=== PATIENT | female | born 1960 | race Caucasian/White ===

== ENCOUNTER → 2019-12-05 09:34 | Outpatient (CLI) | payer OTHER, SELFPAY ==
--- NOTE | 2019-12-05 | DI.MRI.S_ITS ---
PROCEDURE: MR SHOULDER RT WO CON INDICATIONS: pain in right shoulder TECHNIQUE: Noncontrast oblique coronal T2 fast spin echo with fat saturation, oblique sagittal T1 spin echo and T2 fast spin echo with fat saturation, axial T1 spin echo and T2 fast spin echo with fat saturation through the shoulder. COMPARISON: None. FINDINGS: Image quality: Diagnostic. Rotator cuff: No full-thickness or high-grade partial-thickness tear of the rotator cuff is identified. There is mild increased signal involving the bursal surface of the distal supraspinatus tendon, which may represent a low-grade partial-thickness tearing. No significant change is appreciated, however. The subscapularis, infraspinatus, and teres minor tendons are intact. There is no significant atrophy of the rotator cuff muscles. Bones and bursae: No acute fracture, dislocation, or suspicious osseous lesion is identified involving the osseous structures of the shoulder. No significant degenerative changes of the glenohumeral joint are present. There is a moderate size glenohumeral joint effusion. A small amount of fluid is seen extending beyond the inferior joint capsule into the axillary soft tissues. Frhr-na-qsqyqoyh degenerative changes of the acromio clavicular joint are present. There is a small amount of fluid contained within the subacromial subdeltoid bursa. Capsule and soft tissues: Evaluation of the labrum and glenohumeral ligaments is suboptimal without intra-articular contrast. There is blunting of the posterior labrum and increased signal at the labral cartilaginous junction along the superior labrum, which probably is related to previous labral injury. The blunting of the labrum extends along the entire length of the posterior labrum. Edema about the inferior glenohumeral ligament is present with corresponding prominent thickening. A small perforating tear is suspected given the fluid extending beyond inferior joint capsule. There is also edema overlying the superior joint capsule within the region of the rotator interval. The long head of the biceps tendon is normally positioned within the bicipital groove. There is mild intrasubstance increased signal identified at the biceps anchor. IMPRESSION: 1. Mild bursal surface fraying versus tendinopathy of the supraspinatus tendon. No full-thickness tear of the rotator cuff. 2. Edema and thickening of the inferior glenohumeral ligament is suspicious for he's had capsulitis versus a prominent ligamentous sprain. Please correct clinically. 3. Blunting of the posterior labrum is suggestive of previous labral injury. 4. Mild focal tendinopathy versus intrasubstance partial-thickness tearing involving the biceps anchor. 5. Widn-rz-jznyfcuw degenerative changes of the acromio clavicular joint. 6. Small glenohumeral joint effusion. Dictated by: Eliazar Montes De Oca M.D. on 12/05/2019 at 14:53 Approved by: Eliazar Montes De Oca M.D. on 12/05/2019 at 14:56
== END ==
PROVIDERS: PCP Family Medicine; Visit Provider Family Medicine
DX: M25.511 Pain in right shoulder (principal); M19.011 Primary osteoarthritis, right shoulder; M25.411 Effusion, right shoulder
CPT/HCPCS: 73221

== ENCOUNTER → 2020-07-29 10:00 | Outpatient (CLI) | payer OTHER, SELFPAY ==
--- NOTE | 2020-07-29 | DI.MG.S_ITS ---
BILATERAL DIGITAL SCREENING MAMMOGRAM 3D/2D WITH CAD: 07/29/2020 CLINICAL: Routine screening. Comparison is made to exams dated: 01/24/2019 mammogram, 01/09/2018 mammogram, and 01/04/2017 mammogram - [facility]. There are scattered fibroglandular elements in both breasts. Current study was also evaluated with a Computer Aided Detection (CAD) system. No significant masses, calcifications, or other findings are seen in either breast. There has been no significant interval change. IMPRESSION: NEGATIVE There is no mammographic evidence of malignancy. A 1 year screening mammogram is recommended. This exam was interpreted at Station ID: [id number]. NOTE: For mammograms, a report in lay terms will be sent to the patient. Approximately 15% of breast malignancies will not be visualized mammographically. In the management of a palpable breast mass, a negative mammogram must not discourage biopsy of a clinically suspicious lesion. Electronically Signed By: Vishnu wheat/carrol:07/29/2020 10:32:47 letter sent: Normal Exam ACR BI-RADS Category 1: Negative 3341F
== END ==
PROVIDERS: PCP Family Medicine; Referring Provider Family Medicine; Visit Provider Family Medicine
DX: Z12.31 Encounter for screening mammogram for malignant neoplasm of breast (principal)
CPT/HCPCS: 77063; 77067

== ENCOUNTER → 2021-07-26 12:26 | Outpatient (CLI) | payer OTHER, SELFPAY ==
[2021-07-26 14:53] LABS: COVID19 -Nasal RAPID Negative (Negative)
== END ==
PROVIDERS: PCP Family Medicine; Visit Provider Surgery
DX: Z20.822 Contact with and (suspected) exposure to COVID-19 (principal)
CPT/HCPCS: 87635; C9803

== ENCOUNTER 2021-07-27 08:40 | Inpatient (IN) | payer OTHER, SELFPAY ==
[2021-07-23 12:55] VITALS: BMI 34.9
[2021-07-27] VITALS (18 sets, daily range): BP systolic 127–145; BP diastolic 64–85; PULSE 88–101; RESP 11–19; TEMP 35.6–36.6; O2SAT 2–100; BMI 34.9
--- NOTE | 2021-07-27 | PATH_ITS ---
[facility] Accession Number: [id number] . 01 Material submitted: . gallbladder - GALLBLADDER . 01 Diagnosis: Gallbladder, Cholecystectomy: Chronic cholecystitis and cholelithiasis. Negative for dysplasia, neoplasia, and malignancy. [facility] 07/30/2021 1543 Local . 01 Electronically signed: . Liz Lockhart MD, Pathologist NPI- [id number] . 01 Gross description: . The specimen is received in formalin, labeled gallbladder and consists of a 7.2 x 2.8 x 2.4 cm previously disrupted gallbladder with a 1.0 cm in diameter cystic duct. The serosa is garcia-purple and wrinkled with fibrinous adhesions. Opening reveals green viscous bile with two rubi-green multifaceted choleliths measuring 2.0 cm each. The mucosa is rubi and velvety to trabeculated, and the wall thickness measures 0.1 cm. Child Development Teacher sections are submitted, to include the en face cystic duct margin (blue), in cassette A1. ([id number]) /MRV 07/28/2021 1000 Local . 01 Pathologist provided ICD-10: K81.1, K80.50 . 01 CPT . 450376 Performed at: 01 [facility] [address] [place] [address] [address], [place], [place] [id number] MD Ruben Bernal MD Phone: [phone]
[2021-07-27] MEDS: ACETAMINOPHEN 325 MG TABLET 975 MG PO (09:41)
[2021-07-27] MEDS: GABAPENTIN 300 MG CAPSULE PO (09:42)
[2021-07-27] MEDS: SCOPOLAMINE 1 PATCH TOP (09:43)
[2021-07-27] MEDS: LACTATED RINGERS 1,000 ML 100 ML IV ×3 (09:43→14:38)
--- NOTE | 2021-07-27 10:56 | PM.HP.1 ---
History of Present Illness History of Present Illness Date Patient Seen: 07/27/21 Time Patient Seen: 10:56 Chief complaint: [place] Narrative: Светлана is a 60 year-old female who is here for an elective cholecystectomy secondary to biliary colic. Please see the H& P from June 2021 for further detail. No interval changes in health. Patient History Medical History GERD (gastroesophageal reflux disease) History of ectopic Obesity Paraganglioma Surgical History History of laparotomy Hx of tonsillectomy Family & Social History Family History Sister Cancer Father Cancer Mother Gallstone Social History: household members spouse Tobacco & Substance use: Smoking Status Never smoker alcohol intake never Substance Use Type does not use Meds Home Medications and Allergies Home Medications Medication Instructions Recorded Confirmed Type aspirin 81 mg tablet,delayed 81 mg PO DAILY 11/11/19 07/27/21 History release calcium carbonate 500 mg calcium 500 mg PO DAILY 11/11/19 07/27/21 History (1,250 mg) tablet (Calcium 500) lactobacillus combo no.11 15 1 cap PO DAILY 11/11/19 07/27/21 History billion cell sprinkle capsule (Probiotic) multivitamin (Multiple Vitamins) 1 tab PO DAILY 11/11/19 07/27/21 History omega-3 fatty acids-fish oil 360 1 cap PO DAILY 11/11/19 07/27/21 History mg-1,200 mg capsule (Fish Oil) omeprazole 20 mg capsule,delayed 40 mg PO DAILY 11/11/19 07/27/21 History release Allergies Allergy/AdvReac Type Severity Reaction Status Date / Time No Known Drug Allergies Allergy Verified 07/27/21 09:32 Review of Systems Review of Systems ROS: Yes All systems reviewed with the patient and are negative except as otherwise documented Exam Vital Signs (past 8 hours): - 07/27/21 09:34 Temperature 97.1 F L Pulse Rate 88 Respiratory Rate 16 Blood Pressure 130/85 Pulse Oximetry 100 Oxygen Delivery Method Room Air Narrative Exam Narrative: Constitutional-She is oriented to person, place and time. No apparent distress Cardiovascular- regular rate, no peripheral edema Pulmonary-unlabored respiratory effort, no audible wheezing Abdominal-soft, non-tender, non-distended Musculoskeletal-no cyanosis or clubbing Neurological-nonfocal, normal strength throughout, Skin-warm and dry Assessment & Plan Assessment and plan (1) Biliary colic: Status: Acute Assessment & Plan narrative: 60-year-old female with biliary colic here for elective cholecystectomy today. We again discussed the technical nature of the operation and the operative risks including bleeding, infection, damage to surrounding structures, bile leak, conversion to open. Her questions have been answered and she is in agreement with this plan. Time Spent With Patient Critical Care time: I spent a total of [] minutes of critical care time on this patient's care today; this time is exclusive of procedural time.
[2021-07-27] MEDS: CEFAZOLIN 1 GM VIAL 2 GM IV (11:30)
--- NOTE | 2021-07-27 11:40 | SUR.OPER ---
Supine on padded OR bed, head on pillow, safety belt at thigh, left arm padded and tucked at side. Right arm secured on padded arm board <90 degrees abduction. Legs uncrossed. Padded footboard in place, gel pad under bilateral heels. Tape over blanket to secure lower legs.
[2021-07-27] MEDS: BUPIVACAINE 0.25% (PF) VIAL 30 ML INJ (12:05)
[2021-07-27] MEDS: BUPIVACAINE LIPOSOME 266 MG/20 ML VIAL INJ (12:34)
--- NOTE | 2021-07-27 13:30 | P.OP_ITS ---
Operative Date/Time/Diagnoses Date of procedure: 07/27/21 Time of procedure: 13:30 Pre-op diagnosis: Biliary colic Post-op diagnosis: same Procedure & Clinicians Procedure: Laparoscopic converted to open cholecystectomy Same procedure as scheduled: Yes Indications: 60-year-old female with cholelithiasis and biliary colic here for elective cholecystectomy. She has a history of an exploratory laparotomy and aortic cyst excision. Surgeon: Sanjeev Carl Click Yes if Unassisted: Yes Anesthesia Type: General Operative Notes Findings: Extremely dense intra-abdominal adhesions. Specimen(s): other (Gallbladder) Estimated Blood Loss (mL): 20 Procedure in detail: Patient was brought to the operating room placed supine on the table. Bilateral lower extremity compression devices were applied. She received 2 g of Ancef. General anesthesia was induced she was intubated with an endotracheal tube. She was prepped and draped sterile fashion. Time-out was performed. The infraumbilical incision was made that the fascia was elevated and sharply incised. The abdomen was entered atraumatically. Pneumoperitoneum was established. The laparoscoped was introduced into the abdomen and there were extremely dense intra-abdominal adhesions. A secondary port 5 mm was placed in the left upper quadrant and placed under direct visualization with Optiview technique. The remainder of the abdomen that could be observed was again extremely dense adhesions involving numerous loops of bowel prohibitive from accessing the right upper quadrant and therefore the procedure was converted to an open cholecystectomy. A subcostal incision was made in the right upper quadrant. The skin soft tissue was divided with electric cautery. The anterior sheath was incised the muscle was divided in the posterior sheath was incised as well. The abdomen was entered and a self retaining retractor was placed. The gallbladder was then identified was containing large stones which were milked from the neck into the dome of the gallbladder. The fundus of the gallbladder was then grasped and it was dissected off of the liver bed in a top- down fashion. At the infundibulum of the gallbladder a PDS loop was placed. Then I carefully dissected out the cystic duct and the cystic artery which were ligated individually with Weck hemolytic clips. Once proximal twice on the stay side. The cystic duct and artery were then divided sharply. Gallbladder was removed. The gallbladder fossa was irrigated hemostasis was checked. The fascia was then closed in layers using 1. PDS suture in running fashion. The subcutaneous tissue was reapproximated using Vicryl suture followed by Monocryl application of Dermabond and Steri-Strips. The infraumbilical incision fascia was closed with [id number] PDS suture and the infraumbilical and left upper quadrant port skin was closed with Monocryl followed by Dermabond. Patient tolerated the operation well was transferred to recovery room in stable condition. Complications: none Post-operative Condition: stable Disposition: Acute Care
[2021-07-27] MEDS: fentaNYL 100 MCG/2 ML INJ IV ×2 (13:33→13:46)
--- NOTE | 2021-07-27 13:37 | SUR.PHASEI ---
Pt arrived with oral airway, nasal cannula added, airway out 02 being weaned. c/o pain, medicated with fentanyl.
--- NOTE | 2021-07-27 13:42 | SUR.PHASEI ---
Short run of svt 130's, self limiting. Dr. Carl spoke with pt at bedside, report back to Darlene.
--- NOTE | 2021-07-27 14:41 | SUR.PHASEI ---
Patient transfered to room 218 in bed with this Rn with belongings. Bed in low position. Call light in reach.
[2021-07-27] MEDS: KETOROLAC 30 MG/ML VIAL IV ×2 (16:03→22:11)
[2021-07-27] MEDS: HYDROMORPHONE 1 MG INJ IV (17:10)
[2021-07-27] MEDS: ACETAMINOPHEN 325 MG TABLET 650 MG PO (17:43)
[2021-07-27] MEDS: MAG HYDROX/ALUM/SIMETH 30 ML UDC PO (17:50)
[2021-07-27] MEDS: OXYCODONE IR 5 MG TABLET PO (20:19)
[2021-07-27] MEDS: ONDANSETRON 4 MG/2 ML INJ IV (22:06)
--- NOTE | 2021-07-27 22:56 | PC.NURSE ---
Pt hasn't voided yet, she has been to the bedside commode 3 time already. Bladder scan done with 155, Pt had an emesis of 100 ml clear. Pt has only had water and apple sauce tonight. will continue to monitor.
[2021-07-28] VITALS (13 sets, daily range): BP systolic 101–139; BP diastolic 67–77; PULSE 74–91; RESP 16–18; TEMP 35.7–36.5; O2SAT 94–98
[2021-07-28] MEDS: ACETAMINOPHEN 325 MG TABLET 650 MG PO ×4 (00:45→16:59)
[2021-07-28] MEDS: HYDROMORPHONE 1 MG INJ IV ×2 (00:45→08:37)
[2021-07-28] MEDS: LACTATED RINGERS 1,000 ML 100 ML IV (00:45)
[2021-07-28] MEDS: SODIUM CHLORIDE 0.9% FLUSH 10 ML IV ×2 (00:46→22:59)
[2021-07-28] MEDS: OXYCODONE IR 5 MG TABLET PO ×3 (04:09→16:59)
[2021-07-28 06:29] LABS: Add Manual Diff / Slide Review NO; Basophils Absolute Auto 100 /uL (0-100); Basophils Percent Auto 0.4 % (0-2); Eosinophils Absolute Auto 0 /uL (0-450); Hematocrit 37.5 % (36-46); Hemoglobin 12.4 g/dL (12.0-16.0); Lymphocytes Absolute Auto 1100 /uL (1100-4500); Lymphocytes Percent Auto 5.4 % (25-40); Mean Corpuscular HGB Conc 33.1 % (30-36); Mean Corpuscular Hemoglobin 28.7 PG (26-34); Mean Corpuscular Volume 86.7 fL (80-100); Monocytes Absolute Auto 1100 /uL (0-900); Monocytes Percent Auto 5.7 % (3-14); Neutrophils Absolute Auto 17200 /uL (1500-7000); Neutrophils Percent Auto 88.5 % (50-75); Platelet Count 353 X10^3/uL (150-400); Red Blood Cell Count 4.33 X10^6/uL (4.0-5.2); Red Cell Distribution Width 13.6 % (11.6-14.8); White Blood Cell Count 19.4 X10^3/uL (4.5-11.0)
[2021-07-28] MEDS: PANTOPRAZOLE DR 40 MG TABLET PO (06:36)
[2021-07-28 06:37] LABS: Alanine Aminotransferase 70 IU/L (<35); Albumin 4.1 g/dL (3.5-5.0); Albumin Globulin Ratio 1.2 (1.0-2.8); Alkaline Phosphatase 109 U/L (38-126); Aspartate Aminotransferase 85 IU/L (14-36); BUN Creatinine Ratio 22.1 (6-22); Bilirubin Total 0.7 mg/dL (0.2-1.3); Blood Urea Nitrogen 19 mg/dL (7-17); Calcium 9.2 mg/dL (8.4-10.2); Carbon Dioxide 29 mmol/L (22-32); Chloride 102 mmol/L (98-107); Estimated Glomerular Filt Rate > 60.0 mL/min (>60); Globulin 3.3 g/dL (1.7-4.1); Glucose 136 mg/dL (80-110); HEMOLYSIS < 15 (0-50); Potassium 4.2 mmol/L (3.4-5.1); Sodium 137 mmol/L (137-145); Total Protein 7.4 g/dL (6.3-8.2)
[2021-07-28] MEDS: KETOROLAC 30 MG/ML VIAL IV ×3 (06:37→20:37)
[2021-07-28] MEDS: ONDANSETRON 4 MG/2 ML INJ IV (08:37)
[2021-07-28] MEDS: ENOXAPARIN 40 MG/0.4 ML SYRINGE SUBCUT (09:45)
--- NOTE | 2021-07-28 10:21 | PM.PNPO.1 ---
Subjective Subjective Date Patient Seen: 07/28/21 Time Patient Seen: 10:21 Interval history: Incision pain RUQ. No nausea tolerating clears. Arias placed for retention. Exam Vital Signs (past 8 hours): - 07/28/21 06:01 07/28/21 07:50 Temperature 97.7 F 96.3 F L Pulse Rate 84 85 Respiratory Rate 16 16 Blood Pressure 139/70 134/77 Oxygen Delivery Method Room Air Oxygen Flow Rate 0 Narrative Exam Narrative: gen-Adult female alert oriented no acute distress abdomen-soft, appropriately tender to palpation. Incision RUQ CDI. Objective Labs Result Diagrams: 07/28/21 06:14 07/28/21 06:14 Labs: Laboratory Results - last 24 hr 07/28/21 07/28/21 06:14 06:14 WBC 19.4 H RBC 4.33 Hgb 12.4 Hct 37.5 MCV 86.7 MCH 28.7 MCHC 33.1 RDW 13.6 Plt Count 353 Neut % (Auto) 88.5 H Lymph % (Auto) 5.4 L P[place] % (Auto) 5.7 Eos % (Auto) 0.0 L Baso % (Auto) 0.4 Neut # (Auto) 96315 H Lymph # (Auto) 1100 Pinal # (Auto) 1100 H Eos # (Auto) 0 Baso # (Auto) 100 Sodium 137 Potassium 4.2 Chloride 102 Carbon Dioxide 29 BUN 19 H Creatinine 0.86 Estimated GFR > 60.0 BUN/Creatinine Ratio 22.1 H Glucose 136 H Calcium 9.2 Total Bilirubin 0.7 AST 85 H ALT 70 H Alkaline Phosphatase 109 Total Protein 7.4 Albumin 4.1 Globulin 3.3 Albumin/Globulin Ratio 1.2 PFSH Medical History GERD (gastroesophageal reflux disease) History of ectopic Obesity Paraganglioma Surgical History History of laparotomy Hx of tonsillectomy Family History Sister Cancer Father Cancer Mother Gallstone Social History marital status: household members: spouse Smoking Status: Never smoker alcohol intake: never Assessment & Plan Post-op Postoperative Procedures: Procedures Operation Date: 07/27/21 09:45 Actual Procedure Side Surgeon p Laparoscopic Cholecystectomy- converted to open cholecystectomy Sanjeev Carl MD Postoperative plan narrative: POD 1 sp lap to open cholecystectomy for biliary colic. Open for extensive intra abdominal adhesions. Doing reasonably well for POD1. -Diet as tolerated -OOB -Physical therapy consult -Arias for urinary rention -Likely discharge tomorrow if leukocytosis down trends and pain adequately controlled. -SCDs and pLovenox
[2021-07-28] MEDS: LACTATED RINGERS 1,000 ML 120 ML IV (13:26)
--- NOTE | 2021-07-28 14:22 | PT.IIE ---
Current Diagnoses Calculus of bile duct without cholangitis or cholecystitis without obstruction (07/27/21) Surgery Performed Operation Date: 07/27/21 09:45 Actual Procedures p Laparoscopic Cholecystectomy- converted to open cholecystectomy - Sanjeev Carl MD Medical History (Last Reviewed 07/27/21 @ 10:57 by Sanjeev Carl MD) GERD (gastroesophageal reflux disease) History of ectopic Obesity Paraganglioma Physical Therapy Inpatient Evaluation/Re-Eval M1 PT/OT-IP Prior Functional Status Start: 07/28/21 16:07 Freq: NEEDED Status: Active Protocol: Document 07/28/21 14:22 AB (Rec: 07/28/21 16:17 AB [id number]) Medical Review Prior Functional Status Medical History Reviewed Yes Communication able to make needs known Mobility and Gait pt stated that she is independent with all mobilities and ambulation without AD Social History Household Members spouse Living Arrangements House Number of Floors (Floors) One Floor Number of Stairs To Enter/Railing? 3 steps to enter without rails Home Environment High Toilet,Tub/Shower Home Equipment Straight Cane Employment Status Retired M2 PT-IP Current Condition Start: 07/28/21 16:07 Freq: NEEDED Status: Active Protocol: Document 07/28/21 14:22 AB (Rec: 07/28/21 16:17 AB [email or web address]) Physical Therapy Current Condition Current Condition Evaluation Date 07/28/21 Treatment Diagnosis s/p lap bin; difficulty in walking Onset Date 07/27/21 Precautions Abdominal Surgery Precautions Log Roll,Lifting Restrictions, Gait Belt above Incisional Area M3 PT-IP Subjective Start: 07/28/21 16:07 Freq: NEEDED Status: Active Protocol: Document 07/28/21 14:22 AB (Rec: 07/28/21 16:17 AB [email or web address]) Subjective Physical Therapy Visit Type Type Initial Evaluation Visit Start Time 14:22 Visit Stop Time 14:45 Total Visit Minutes 23 Number of BUSINESS OBJECTS CONSULTANT Visits 0 Physical Therapy Visit Comments Patient Comments agreeable to do PT Therapy Pain Assessment Pain When Pain Assessed At Rest Pain Present Pain Present Pain Reported Location abdomen Intensity 8 Scale Used Numeric (0 - 10) Pain Management Techniques Distraction,Modification of Treatment,Re-positioning, Timing of Activity with Medications M4 PT-IP Mobility and Gait Start: 07/28/21 16:07 Freq: NEEDED Status: Active Protocol: Document 07/28/21 14:22 AB (Rec: 07/28/21 16:17 AB [email or web address]) PT-Bed Mobility Assessment Rolling Type of Rolling Log Rolling Level of Assist Minimal Assistance Sit to Supine Sit to Supine Minimal Assistance,1 Person Assistance,Bedrails PT-Transfer Assessment Sit to and From Stand Sit to and from Stand Minimal Assistance Equipment Transfer Assistive Device Gait Belt,Front Wheeled Walker Orthotic/Prosthetic Devices or Brace: No Comments Mobility Comments pt sitting on EOB and agreed to do PT. educated pt on abdominal precautions and log roll bed mobility. pt with c/ o nausea. BP: 121/73. completed sit to stand min A and cues and ambulated using FWW ~ 8ft min A and cues. c/o increase pain and requested to go back to bed. completed log roll sit to supine min A and cues. positioned in bed. call light and table placed wtihin reach. Gait Assessment Gait Gait Assistance Required: Minimum Assistance Distance (Feet) 8 Able to Maintain Weight Bearing Status Yes During Gait Assistive Devices Assistive Device Gait Belt,Front Wheeled Walker Orthotic/Prosthetic Devices or Brace: No Gait Deviations General Gait Pattern Decreased Stride Length, Decreased Feet Clearance Factors Limiting Gait Function Factors Limiting Gait Function Decreased Activity Tolerance, Decreased Strength,Limited Range of Motion,Pain,Poor Balance,Poor Safety Awareness PT-Balance Assessment Sitting Balance and Reactions Static Sitting Balance Ability Good Dynamic Sitting Balance Ability Good Standing Balance and Reactions Static Standing Balance Ability Fair Dynamic Standing Balance Ability Fair Device Used FWW M5 PT-IP Objective Assessments Start: 07/28/21 16:07 Freq: NEEDED Status: Active Protocol: Document 07/28/21 14:22 AB (Rec: 07/28/21 16:17 [email or web address]) Orientation Orientation/Cognition Level of Alertness Alert Orientation Name,Place,Situation Language Function Ability No Deficits Noted Safety Awareness Decreased Safety Awareness Memory Description No Deficits Noted Gross Range of Motion Lower Extremity ROM Assessment Within Functional Limits Strength Lower Extremity Strength Assessment Left Impaired Hip 3+/5 Knee 4-/5 Coordination Assessment Gross Coordination Gross Coordination WNL Sensation Assessment Sensation Gross Sensation WNL Muscle Tone Muscle Tone WNL Yes M6 PT-IP Treatment Start: 07/28/21 16:07 Freq: NEEDED Status: Active Protocol: Document 07/28/21 14:22 AB (Rec: 07/28/21 16:17 [email or web address]) Physical Therapy Treatment Education Education Provided Precautions,Safety M7 PT-IP Assessment and Plan Start: 07/28/21 16:07 Freq: NEEDED Status: Active Protocol: Document 07/28/21 14:22 AB (Rec: 07/28/21 16:17 AB [email or web address]) PT Summary Assessment and Plan Potential Rehabilitation Potential Good Status of Condition at Evaluation Evolving Summary Impairments Pain,ROM,Strength,Balance, Coordination,Sensation,Tone, Cognition,Bed Mobility, Transfers,Gait,Activity Tolerance Assessment Summary pt requiring min A with mobility using FWW and presents with decrease activity tolerance with c/o increase pain and nausea with activity affecting mobility independence. pt plans to go home with spouse to assist her . informed spouse that pt will need FWW at this time and spouse stated that he can borrow. one. will conduct caregiver training when appropriate as well as stair climbing training. will continue to assess pt's mobility progress. Goals Bed Mobility Goal Independent Transfer Goal Independent,Front Wheeled Walker Gait Goal Independent,Front Wheel Walker Gait Distance 200 Other Goals improve transfers and ambulation without AD 200 ft SBA up/down 3 steps without rails SBA Days to Meet Goals 10 Frequency of Treatment Frequency Of Treatment Once a Day Treatment Plan Physical Therapy Treatment Plan Bed Mobility Training,Transfer Training,Gait Training, Therapeutic Exercise,Balance Retraining,Post Op Education, Discharge Planning,Hot or Cold Pack,Neuromuscular Re-ed, Coordination Retraining,Manual Therapy Other Recommendations and Next Treatment ambulation Focus Precautions Abdominal Surgery Precautions Log Roll,Lifting Restrictions, Gait Belt above Incisional Area Recommendations To Nursing Amount of Assist Needed 1 Person Assist Discharge Recommendations PT Discharge Recommendations Home with Assistance Equipment Needed for Home Before FWW Discharge Transportation Needs at Discharge Private Vehicle
[2021-07-29] VITALS (10 sets, daily range): BP systolic 110–133; BP diastolic 66–77; PULSE 76–105; RESP 16–17; TEMP 36.2–37.2; O2SAT 94–97
[2021-07-29] MEDS: KETOROLAC 30 MG/ML VIAL IV ×2 (03:47→21:15)
[2021-07-29] MEDS: SODIUM CHLORIDE 0.9% FLUSH 10 ML IV ×3 (03:47→19:59)
[2021-07-29 05:21] LABS: Add Manual Diff / Slide Review NO; Basophils Absolute Auto 0 /uL (0-100); Basophils Percent Auto 0.3 % (0-2); Eosinophils Absolute Auto 100 /uL (0-450); Hematocrit 33.7 % (36-46); Lymphocytes Absolute Auto 1300 /uL (1100-4500); Lymphocytes Percent Auto 10.7 % (25-40); Mean Corpuscular HGB Conc 32.8 % (30-36); Mean Corpuscular Hemoglobin 28.5 PG (26-34); Mean Corpuscular Volume 86.9 fL (80-100); Monocytes Absolute Auto 900 /uL (0-900); Monocytes Percent Auto 7.7 % (3-14); Neutrophils Absolute Auto 9900 /uL (1500-7000); Neutrophils Percent Auto 80.3 % (50-75); Platelet Count 292 X10^3/uL (150-400); Red Blood Cell Count 3.88 X10^6/uL (4.0-5.2); Red Cell Distribution Width 13.7 % (11.6-14.8); White Blood Cell Count 12.4 X10^3/uL (4.5-11.0)
[2021-07-29 05:33] LABS: Alanine Aminotransferase 103 IU/L (<35); Albumin 3.6 g/dL (3.5-5.0); Albumin Globulin Ratio 1.2 (1.0-2.8); Alkaline Phosphatase 105 U/L (38-126); Aspartate Aminotransferase 115 IU/L (14-36); BUN Creatinine Ratio 20.5 (6-22); Bilirubin Total 1.5 mg/dL (0.2-1.3); Blood Urea Nitrogen 18 mg/dL (7-17); Calcium 8.7 mg/dL (8.4-10.2); Carbon Dioxide 30 mmol/L (22-32); Chloride 106 mmol/L (98-107); Estimated Glomerular Filt Rate > 60.0 mL/min (>60); Globulin 3.1 g/dL (1.7-4.1); Glucose 111 mg/dL (80-110); HEMOLYSIS < 15 (0-50); Potassium 4.1 mmol/L (3.4-5.1); Sodium 138 mmol/L (137-145); Total Protein 6.7 g/dL (6.3-8.2)
[2021-07-29] MEDS: OXYCODONE IR 5 MG TABLET PO ×4 (05:35→20:00)
[2021-07-29] MEDS: ACETAMINOPHEN 325 MG TABLET 650 MG PO ×4 (05:36→17:23)
[2021-07-29] MEDS: PANTOPRAZOLE DR 40 MG TABLET PO (05:37)
[2021-07-29] MEDS: ENOXAPARIN 40 MG/0.4 ML SYRINGE SUBCUT (09:35)
--- NOTE | 2021-07-29 10:47 | PT.IPTN ---
Current Diagnoses Calculus of bile duct without cholangitis or cholecystitis without obstruction (07/27/21) Surgery Performed Operation Date: 07/27/21 09:45 Actual Procedures p Laparoscopic Cholecystectomy- converted to open cholecystectomy - Sanjeev Carl MD Physical Therapy Treatment Note M2 PT-IP Current Condition Start: 07/28/21 16:07 Freq: NEEDED Status: Active Protocol: Document 07/28/21 14:22 AB (Rec: 07/28/21 16:17 AB [id number]) Physical Therapy Current Condition Current Condition Evaluation Date 07/28/21 Treatment Diagnosis s/p lap bin; difficulty in walking Onset Date 07/27/21 Precautions Abdominal Surgery Precautions Log Roll,Lifting Restrictions, Gait Belt above Incisional Area M3 PT-IP Subjective Start: 07/28/21 16:07 Freq: NEEDED Status: Active Protocol: Document 07/29/21 10:10 SP (Rec: 07/29/21 13:26 SP [id number]) Subjective Physical Therapy Visit Type Type Treatment Note Visit Start Time 10:09 Visit Stop Time 10:47 Total Visit Minutes 38 Notes AIRWAYS CONTROL SPECIALIST coordinated with pt earlier in am for later am for CGT at 10 am. in room when arrived. He completed caregiver training including assist fasten abdominal binder, donning gait belt and physical assist throughout tx required . Vitals taken during tx: seated in chair at rest: 119/ 75 HR 75-105, SaO2 94% on on RA. standing 106/ 54 HR 121 supine post mobility: 111/64 HR 90 SaO2 98% on RA. Pt reported feeling lightheaded but willing to assess gait and stairs, lightheadedness did not worsen during mobility. Number of AIRWAYS CONTROL SPECIALIST Visits 1 Physical Therapy Visit Comments Patient Comments agreeable to do PT Patient Goals return home with assist. M4 PT-IP Mobility and Gait Start: 07/28/21 16:07 Freq: NEEDED Status: Active Protocol: Document 07/29/21 10:10 SP (Rec: 07/29/21 13:26 SP [id number]) PT-Bed Mobility Assessment Rolling Type of Rolling Log Rolling Level of Assist Standby Assistance Sit to Supine Sit to Supine Minimal Assistance,1 Person Assistance PT-Transfer Assessment Sit to and From Stand Sit to and from Stand Contact Guard Assistance,1 Person Assistance,Use of Upper Extremities Equipment Transfer Assistive Device Gait Belt,Front Wheeled Walker Orthotic/Prosthetic Devices or Brace: No Transfers Transfer Destination Bed,Wheelchair Transfer Technique pt ambulated using FWW Transfer Ability Level of Assist Contact Guard Assistance,1 Person Assistance,Use of Upper Extremities Comments Mobility Comments Pt was seated in chair when arrived. Reviewed abdominal precautions. assisted pt with fastening abdominal binder and donning gait belt for safety to assist during mobility. Sit>stand CGA with cues for, progressed gait into hallway to w/c approx 15 ft using FWW with min-mod UE WB on FWW, steady on feet. Pt stand>sit CGA into w/c. Pt wheeled down to stairs, completed stair mgt and requested be pushed back to room due to really tired and still lightheaded. Wheeled pt back to room. Sit<>stand, SPT to R side of bed CGA using FWW . Seated at EOB>supine Min A for LEs into bed. Pt used pillow hold at abdomen during bed mobility, able to bridge scoot to center self in bed. Pt elevated head and LEs per request. Pt stated will probable sleep in recliner at home until feel little better knowing pain having. stated acquired FWW for pt to use at home. Pt had call light and all needs in reach with in room before left. Gait Assessment Gait Gait Assistance Required: Contact Guard Assist Distance (Feet) 15 Able to Maintain Weight Bearing Status Yes During Gait Assistive Devices Assistive Device Gait Belt,Front Wheeled Walker Orthotic/Prosthetic Devices or Brace: No Gait Deviations General Gait Pattern Decreased Stride Length, Decreased Feet Clearance Factors Limiting Gait Function Factors Limiting Gait Function Decreased Activity Tolerance, Decreased Strength,Limited Range of Motion,Pain Comments Gait Comments See mobility comments. Stair Climbing Assessment Evaluation Level of Assist On Stairs Minimal Assistance,1 Person Assistance Devices Stair Climbing Assistive Devices Straight Cane Technique/Endurance Stair Climbing Direction Ascend and Descend Stair Climbing Technique Step to Step Number of Steps Climbed 3 Stair Climbing Set # Repetitions (reps) 1 Comments Stair Climbing Comments Pt completed step to patterning ascend/descend using SPC in RUE and HAND SHOES SEWER with LUE via Min A, no deviations or LOB. Pt states had walking stick will use as 2nd device for stair mgt. PT-Balance Assessment Sitting Balance and Reactions Static Sitting Balance Ability Normal Dynamic Sitting Balance Ability Good Standing Balance and Reactions Static Standing Balance Ability Good Dynamic Standing Balance Ability Fair Device Used FWW M5 PT-IP Objective Assessments Start: 07/28/21 16:07 Freq: NEEDED Status: Active Protocol: Document 07/28/21 14:22 AB (Rec: 07/28/21 16:17 AB [id number]) Orientation Orientation/Cognition Level of Alertness Alert Orientation Name,Place,Situation Language Function Ability No Deficits Noted Safety Awareness Decreased Safety Awareness Memory Description No Deficits Noted Gross Range of Motion Lower Extremity ROM Assessment Within Functional Limits Strength Lower Extremity Strength Assessment Left Impaired Hip 3+/5 Knee 4-/5 Coordination Assessment Gross Coordination Gross Coordination WNL Sensation Assessment Sensation Gross Sensation WNL Muscle Tone Muscle Tone WNL Yes M6 PT-IP Treatment Start: 07/28/21 16:07 Freq: NEEDED Status: Active Protocol: Document 07/29/21 10:10 SP (Rec: 07/29/21 13:26 SP [id number]) Physical Therapy Treatment Education Education Provided Precautions,Safety Other Treatments Other Treatment Performed Cued awareness of use of pillow anterior abdomen and TA facilitation for support during bed mobility. M7 PT-IP Assessment and Plan Start: 07/28/21 16:07 Freq: NEEDED Status: Active Protocol: Document 07/29/21 10:10 SP (Rec: 07/29/21 13:26 SP [id number]) PT Summary Assessment and Plan Potential Rehabilitation Potential Good Status of Condition at Evaluation Evolving Summary Impairments Pain,ROM,Strength,Balance, Coordination,Sensation,Tone, Cognition,Bed Mobility, Transfers,Gait,Activity Tolerance Progress Towards Goals Progressing Toward Goals,Slow Progress due to Pain,Slow Progress due to Activity Tolerance Assessment Summary Pt required Min A for LEs help into bed sit>supine, transfers and gait CGA using fWW for safety due to lightheadedness did not worsen , stable vitals. Min A x1 for stair mgt able to help her. Pt is ok to return home with her to assist her when medically cleared. Goals Bed Mobility Goal Independent Transfer Goal Independent,Front Wheeled Walker Gait Goal Independent,Front Wheel Walker Gait Distance 200 Other Goals improve transfers and ambulation without AD 200 ft SBA up/down 3 steps without rails SBA Days to Meet Goals 10 Frequency of Treatment Frequency Of Treatment Once a Day Treatment Plan Physical Therapy Treatment Plan Bed Mobility Training,Transfer Training,Gait Training, Therapeutic Exercise,Balance Retraining,Post Op Education, Discharge Planning,Hot or Cold Pack,Neuromuscular Re-ed, Coordination Retraining,Manual Therapy Other Recommendations and Next Treatment increase distance gait using Focus FWW vs LRAD. Precautions Abdominal Surgery Precautions Log Roll,Lifting Restrictions, Gait Belt above Incisional Area Other Precautions Good recall and demonstration of precautions Recommendations To Nursing Amount of Assist Needed 1 Person Assist Discharge Recommendations PT Discharge Recommendations Home with Assistance Equipment Needed for Home Before FWW - acquired for home Discharge use. Transportation Needs at Discharge Private Vehicle
--- NOTE | 2021-07-29 11:56 | PM.PNPO.1 ---
Subjective Subjective Date Patient Seen: 07/29/21 Time Patient Seen: 11:56 Interval history: Continued incision pain right upper quadrant although improved from yesterday Associated nausea no emesis. Exam Vital Signs (past 8 hours): - 07/29/21 06:00 07/29/21 08:12 07/29/21 11:50 Temperature 97.4 F L 97.9 F Pulse Rate 94 H 91 H Respiratory Rate 16 16 Blood Pressure 110/77 133/71 Pulse Oximetry 97 95 94 Oxygen Delivery Method Room Air Oxygen Flow Rate 0 Narrative Exam Narrative: General adult female alert oriented no acute distress Abdomen soft no peritonitis. Tenderness along the right upper quadrant incision Objective Labs Result Diagrams: 07/29/21 05:05 07/29/21 05:05 Labs: Laboratory Results - last 24 hr 07/29/21 07/29/21 05:05 05:05 WBC 12.4 H RBC 3.88 L Hgb 11.0 L Hct 33.7 L MCV 86.9 MCH 28.5 MCHC 32.8 RDW 13.7 Plt Count 292 Neut % (Auto) 80.3 H Lymph % (Auto) 10.7 L [place] % (Auto) 7.7 Eos % (Auto) 1.0 L Baso % (Auto) 0.3 Neut # (Auto) 9900 H Lymph # (Auto) 1300 [place] # (Auto) 900 Eos # (Auto) 100 Baso # (Auto) 0 Sodium 138 Potassium 4.1 Chloride 106 Carbon Dioxide 30 BUN 18 H Creatinine 0.88 Estimated GFR > 60.0 BUN/Creatinine Ratio 20.5 Glucose 111 H Calcium 8.7 Total Bilirubin 1.5 H AST 115 H ALT 103 H Alkaline Phosphatase 105 Total Protein 6.7 Albumin 3.6 Globulin 3.1 Albumin/Globulin Ratio 1.2 PFSH Medical History GERD (gastroesophageal reflux disease) History of ectopic Obesity Paraganglioma Surgical History History of laparotomy Hx of tonsillectomy Family History Sister Cancer Father Cancer Mother Gallstone Social History marital status: household members: spouse Smoking Status: Never smoker alcohol intake: never Assessment & Plan Post-op Postoperative Procedures: Procedures Operation Date: 07/27/21 09:45 Actual Procedure Side Surgeon p Laparoscopic Cholecystectomy- converted to open cholecystectomy Sanjeev Carl MD Postoperative status narrative: 60-year-old female postoperative day 2 status post open cholecystectomy. Leukocytosis down trending from 19-12 today. Continues to have expected incision pain and nausea. -diet as tolerated -out of bed ambulate -SCDs and Lovenox
--- NOTE | 2021-07-29 11:56 | CM.DANOTE ---
DCP assessment: patient is a 60 yr old female who had an open cholecystectomy preformed by . Patient lives with Tam in a single level home with 3 steps into the home without rails. YULISSA Reyes met with patient at the bedside and explained role. Patient is Independent with all ADLS and drives at baseline. Patient met with PT and they recommend home with assistance. Insurance prime Plan: DC home with spouse Tam when medically stable- no Identified DC planning needs noted at this time CM department will continue to follow to assist with any new DC planning needs that may arise. Geeta Ruff CM/ correspondence section supervisor Planning/Care Management Advanced directive, confirm from FAMILY Start: 07/28/21 02:41 Freq: Q24H Status: Active Protocol: Document 07/28/21 00:00 JK (Rec: 07/28/21 02:45 JK [id number]) Advance Directive, confirm on record Time 00:00 Person contacted patient Copy received No CM Discharge Assessment Start: 07/29/21 11:45 Freq: Status: Active Protocol: Document 07/29/21 11:46 HS (Rec: 07/29/21 11:56 HS [id number]) Discharge Planning Assessment Assigned Quarter Seamer Geeta Ruff RN Advance Directives? Yes Advance Directives on File No History Provided By Patient,Medical Record Prior Living Arrangements House Household Members spouse Type of transporation used prior to Drives own vehicle admit Independent with ADL's Yes Is patient alert and oriented? Yes DME Already Rented / Owned Elevated Toilet Seat,Cane Barriers to Discharge No Discharge Plan Home Referrals Initiated None needed Whiteboard Updated in Patient Room with Yes name and ext. # of Quarter Seamer Review Status In Process Next Review Type Continued Stay Review Pre-Anesthesia Assessment Start: 07/23/21 12:55 Freq: Status: Active Protocol: Document 07/23/21 12:55 CAB (Rec: 07/23/21 13:01 CAB [id number]) Pre-Anesthesia Assessment Patient Information Reviewed Via Chart Review Comment COVID screen @ 07/26/21 Primary Care Provider Seen Specialist in Last 12 Months Yes Specialist Seen General surgeon Primary Language Yoruba Mobile Unit Assistant Required No Height 172.72 cm Weight 104.326 kg Body Mass Index (BMI) 34.9 Hearing Ability Normal Visual Assist Glasses Dentition Type Teeth, Natural Present Barriers to Learning None Other Aids No Hx Anesthesia Reactions No Hx Family Anesthesia Reaction No Hx Malignant Hyperthermia No Hx Blood Transfusions No Anesthesia Review Requested No Shuttler Car No alcohol intake never Smoking Status Never smoker Substance Use Type does not use Pain Present Pain Reported Comment RUQ History of Falling (Recent or History of No ) Patient is completely paralyzed or No completely immobile Mental Status Oriented to own ability Is patient on oxygen? No Does patient have OLSON/SOB No Hx Sleep Apnea No Currently Taking a Beta Raquel No Hx Chest Pain No Hx SOB No Hx Syncope or Dizziness No Anti-Coagulant Therapy No Has a Industrial Roof Plumber No Cardiac Testing No Hx Pacemaker/ICD No Pacemaker Rep Required? No Gastrointestinal Symptoms Abdominal Pain,Bloating,Reflux Urinary Catheter Present No Hx Urinary Self Catheterization No Diabetes No Patient No Lactating No Marital Status Lives With spouse Patient Discharge Plan Description Return Home
--- NOTE | 2021-07-29 13:55 | PC.NURSE ---
Addendum entered by Fay Choi R.N. 07/29/21 15:01: Patient able to void 75 cc, PVR 75ml. Original Note: Patient A/O x 4, up to chair, reports increasing pain with movement. Splinting with pillow, binder intact. BT hypoactive, patient denies flatus. Abdomen soft. VSS, lungs CTA, 95% on RA. Patient denies having an appetite, tolerating fluids. Patient encouraged to continue ambulating. remains bedside at this time. Patient's johnson removed at 0800, patient has yet to void. Bladder scan at 1400 shows 147ml, patient reports she feels she has to void but is unable. Call light in reach.
[2021-07-30] VITALS (11 sets, daily range): BP systolic 103–143; BP diastolic 53–87; PULSE 92–119; RESP 16–18; TEMP 36.1–37.2; O2SAT 93–97
[2021-07-30] MEDS: ACETAMINOPHEN 325 MG TABLET 650 MG PO ×4 (00:27→17:39)
[2021-07-30] MEDS: OXYCODONE IR 5 MG TABLET PO (02:48)
[2021-07-30 05:34] LABS: Add Manual Diff / Slide Review NO; Basophils Absolute Auto 0 /uL (0-100); Basophils Percent Auto 0.3 % (0-2); Eosinophils Absolute Auto 200 /uL (0-450); Eosinophils Percent Auto 2.1 % (2-4); Hematocrit 31.4 % (36-46); Hemoglobin 10.3 g/dL (12.0-16.0); Lymphocytes Absolute Auto 1300 /uL (1100-4500); Lymphocytes Percent Auto 11.8 % (25-40); Mean Corpuscular HGB Conc 32.7 % (30-36); Mean Corpuscular Hemoglobin 28.5 PG (26-34); Mean Corpuscular Volume 87.4 fL (80-100); Monocytes Absolute Auto 800 /uL (0-900); Monocytes Percent Auto 7.4 % (3-14); Neutrophils Absolute Auto 8800 /uL (1500-7000); Neutrophils Percent Auto 78.4 % (50-75); Platelet Count 279 X10^3/uL (150-400); Red Cell Distribution Width 13.7 % (11.6-14.8); White Blood Cell Count 11.2 X10^3/uL (4.5-11.0)
[2021-07-30 06:11] LABS: Alanine Aminotransferase 116 IU/L (<35); Albumin 3.4 g/dL (3.5-5.0); Albumin Globulin Ratio 1.1 (1.0-2.8); Alkaline Phosphatase 112 U/L (38-126); Aspartate Aminotransferase 95 IU/L (14-36); BUN Creatinine Ratio 21.3 (6-22); Blood Urea Nitrogen 19 mg/dL (7-17); Calcium 8.7 mg/dL (8.4-10.2); Carbon Dioxide 33 mmol/L (22-32); Chloride 103 mmol/L (98-107); Estimated Glomerular Filt Rate > 60.0 mL/min (>60); Globulin 3.1 g/dL (1.7-4.1); Glucose 106 mg/dL (80-110); HEMOLYSIS < 15 (0-50); Potassium 3.8 mmol/L (3.4-5.1); Sodium 138 mmol/L (137-145); Total Protein 6.5 g/dL (6.3-8.2)
[2021-07-30] MEDS: PANTOPRAZOLE DR 40 MG TABLET PO (06:33)
[2021-07-30] MEDS: ENOXAPARIN 40 MG/0.4 ML SYRINGE SUBCUT (08:19)
[2021-07-30] MEDS: SODIUM CHLORIDE 0.9% FLUSH 10 ML IV ×2 (08:20→21:05)
[2021-07-30] MEDS: MAG HYDROX/ALUM/SIMETH 30 ML UDC PO (08:20)
--- NOTE | 2021-07-30 11:08 | PT.IPTN ---
Addendum entered and electronically signed by Mee Reynolds, JOSE 07/30/21 11:35: Vitals taken during: seated post mobility: BP 134/72, HR 102, SaO2 98% on RA. Original Note: Addendum entered and electronically signed by Mee Reynolds PTA 07/30/21 11:34: Pt had abdominal binder donned when arrived, remained on throughout tx. Original Note: Current Diagnoses Calculus of bile duct without cholangitis or cholecystitis without obstruction (07/27/21) Surgery Performed Operation Date: 07/27/21 09:45 Actual Procedures p Laparoscopic Cholecystectomy- converted to open cholecystectomy - Sanjeev Carl MD Physical Therapy Treatment Note M2 PT-IP Current Condition Start: 07/28/21 16:07 Freq: NEEDED Status: Active Protocol: Document 07/28/21 14:22 AB (Rec: 07/28/21 16:17 AB [id number]) Physical Therapy Current Condition Current Condition Evaluation Date 07/28/21 Treatment Diagnosis s/p lap bin; difficulty in walking Onset Date 07/27/21 Precautions Abdominal Surgery Precautions Log Roll,Lifting Restrictions, Gait Belt above Incisional Area M3 PT-IP Subjective Start: 07/28/21 16:07 Freq: NEEDED Status: Active Protocol: Document 07/30/21 10:49 SP (Rec: 07/30/21 11:33 SP [id number]) Subjective Physical Therapy Visit Type Type Treatment Note Visit Start Time 10:49 Visit Stop Time 11:08 Total Visit Minutes 19 Notes in room, proper donning gait belt and completed all physical needs pt required throughout tx. Number of AVIONICS SYSTEMS ENGINEER Visits 2 Physical Therapy Visit Comments Patient Comments Pt reported has been getting around room with nursing and using FWW. Pt agreeable to working with therapy. Patient Goals Return home with assist. Therapy Pain Assessment Pain When Pain Assessed At Rest Pain Present Pain Present Denied Pain Location abdomen Intensity 3 Scale Used 3-4/10 at rest, 7-8/10 during bed mobility causing nausea Description With Movement Pain Behaviors Facial Grimacing,Holding Area Pain Management Techniques Distraction,Re-positioning, Timing of Activity with Medications M4 PT-IP Mobility and Gait Start: 07/28/21 16:07 Freq: NEEDED Status: Active Protocol: Document 07/30/21 10:49 SP (Rec: 07/30/21 11:33 SP [id number]) PT-Bed Mobility Assessment Rolling Type of Rolling Log Rolling Level of Assist Standby Assistance Supine to Sit Supine to Sit Moderate Assistance,1 Person Assistance,Head of Bed Elevated Scooting Scooting to Edge of Bed Standby Assistance PT-Transfer Assessment Sit to and From Stand Sit to and from Stand Standby Assistance,1 Person Assistance,Use of Upper Extremities Equipment Transfer Assistive Device Gait Belt,Front Wheeled Walker Orthotic/Prosthetic Devices or Brace: No Transfers Transfer Destination Chair Transfer Technique pt ambulated using FWW Transfer Ability Level of Assist Standby Assistance,Use of Upper Extremities Comments Mobility Comments AVIONICS SYSTEMS ENGINEER reviewed LR technique with recommendation of hold pillow at abdomen and positioning for support at upper back for trunk righting support while pt used UE for self trunk righting pre mobility. Pt completed elevated supine 20 deg> LR to R with knees bent holding pillow against abdomen. R SL> sit Mod A x1 ( assisted ) at upper back to assist right trunk to sit with AVIONICS SYSTEMS ENGINEER cuing for RUE WB press into bed to complete to sit. Scoot to EOB SBA using RUE w/ LUE hold pillow at abdomen. Sit> Stand use fo 1 UE on bed using FWW LLE downward pressure. Pt able to walk further distance in room 30 ft x3 laps using FWW SBA today with occasional cuing for awareness of upright posture to decrease rounded posture with good carryover self corrections as distance progressed. Pt demonstrates decreased BUE WB on FWW and more steady on her feet. Suggested assessment of use of SPC but pt declined due to nausea and little lightheadedness end of tx. SPT and stand>sit in chair using BUE on chair arms sBA. Pt requested us of emesis bag for nausea, not needed. Pt states most of her pain experiences is during bed mobility. Pt had call light and all needs in reach with in room before left. Gait Assessment Gait Gait Assistance Required: Standby Assistance Distance (Feet) 90 Able to Maintain Weight Bearing Status Yes During Gait Assistive Devices Assistive Device Gait Belt,Front Wheeled Walker Orthotic/Prosthetic Devices or Brace: No Gait Deviations General Gait Pattern Flexed Trunk Factors Limiting Gait Function Factors Limiting Gait Function Decreased Activity Tolerance, Decreased Strength,Limited Range of Motion,Pain Comments Gait Comments Pt receiprocal gait, improved upright posture and decrease BUE WB on FWW as distance progressed post cuing, SBA. PT-Balance Assessment Sitting Balance and Reactions Static Sitting Balance Ability Normal Dynamic Sitting Balance Ability Good Standing Balance and Reactions Static Standing Balance Ability Good Dynamic Standing Balance Ability Good Device Used FWW M5 PT-IP Objective Assessments Start: 07/28/21 16:07 Freq: NEEDED Status: Active Protocol: Document 07/28/21 14:22 AB (Rec: 07/28/21 16:17 AB [id number]) Orientation Orientation/Cognition Level of Alertness Alert Orientation Name,Place,Situation Language Function Ability No Deficits Noted Safety Awareness Decreased Safety Awareness Memory Description No Deficits Noted Gross Range of Motion Lower Extremity ROM Assessment Within Functional Limits Strength Lower Extremity Strength Assessment Left Impaired Hip 3+/5 Knee 4-/5 Coordination Assessment Gross Coordination Gross Coordination WNL Sensation Assessment Sensation Gross Sensation WNL Muscle Tone Muscle Tone WNL Yes M6 PT-IP Treatment Start: 07/28/21 16:07 Freq: NEEDED Status: Active Protocol: Document 07/30/21 10:49 SP (Rec: 07/30/21 11:33 SP [id number]) Physical Therapy Treatment Education Education Provided Precautions,Safety Other Treatments Other Treatment Performed Reviewed pillow anterior abdomen and TA facilitation for support during bed mobility. M7 PT-IP Assessment and Plan Start: 07/28/21 16:07 Freq: NEEDED Status: Active Protocol: Document 07/30/21 10:49 SP (Rec: 07/30/21 11:33 SP [id number]) PT Summary Assessment and Plan Potential Rehabilitation Potential Good Status of Condition at Evaluation Evolving Summary Impairments Pain,ROM,Strength,Balance, Coordination,Sensation,Tone, Cognition,Bed Mobility, Transfers,Gait,Activity Tolerance Progress Towards Goals Progressing Toward Goals,Slow Progress due to Pain,Slow Progress due to Activity Tolerance Assessment Summary Pt required Mod A for trunk righting during sup>sit. SBA for rest of mobility using FWW . Pt continues to feel lightheaded and nausea but states alot less today, most of her pain during bed mobility. Unable to assess gait SPC due to safety lightheadedness and pt continues to have increase UE WB throught BUE on FWW, also declined doesn't feel ready. acquired FWW for use at home. Pt is ok to return home with to assist her when medically stable. Goals Bed Mobility Goal Independent Transfer Goal Independent,Front Wheeled Walker Gait Goal Independent,Front Wheel Walker Gait Distance 200 Other Goals improve transfers and ambulation without AD 200 ft SBA up/down 3 steps without rails SBA Days to Meet Goals 10 Frequency of Treatment Frequency Of Treatment Once a Day Treatment Plan Physical Therapy Treatment Plan Bed Mobility Training,Transfer Training,Gait Training, Therapeutic Exercise,Balance Retraining,Post Op Education, Discharge Planning,Hot or Cold Pack,Neuromuscular Re-ed, Coordination Retraining,Manual Therapy Other Recommendations and Next Treatment Distance gait LRAD, standing Focus balance assessment. Precautions Abdominal Surgery Precautions Log Roll,Lifting Restrictions, Gait Belt above Incisional Area Other Precautions Good recall and demonstration of precautions Recommendations To Nursing Amount of Assist Needed Standby Assistance,1 Person Assist Discharge Recommendations PT Discharge Recommendations Home with Assistance Equipment Needed for Home Before FWW - acquired for home Discharge use. Transportation Needs at Discharge Private Vehicle
--- NOTE | 2021-07-30 11:12 | PC.NURSE ---
Addendum entered by Fay Choi R.N. 07/30/21 15:17: Patient up ambulating in the halls with , using FWW. Denies dizziness or lightheadedness or SOB. Patient still reports feeing bloated, MD aware. Patient encouraged to continue walking and sipping fluids. Patient verbalized understanding. Zofran IV administered for nausea. Original Note: Patient ambulating in the room with , encouraged to continue activity. BT active but still no flatus per patient. Abdominal incision are WNL, dsg dry and intact. Binder remains on. Patient reports minimal appetite, denies nausea. Encouraged to drink fluids. VSS, 94-96% on RA, lungs CTA. HRR, tachy. Patient denies pain except with belching, denies needing anything more for pain than scheduled Tylenol at this time. Administered Maalox to help with bloated sensation and indigestion. IV in R AC saline locked. Patient denies further needs at this time. Call light in reach.
[2021-07-30] MEDS: ONDANSETRON 4 MG/2 ML INJ IV (12:08)
--- NOTE | 2021-07-30 12:41 | PM.PN.1 ---
Subjective Subjective Date Patient Seen: 07/30/21 Time Patient Seen: 12:41 Interval history: Pt states that she still feels pretty crummy. +/- Nausea, No Flatus Exam Vital Signs (past 8 hours): - 07/30/21 05:26 07/30/21 08:00 Temperature 97.2 F L 98.2 F Pulse Rate 92 H 93 H Respiratory Rate 16 16 Blood Pressure 103/53 L 129/73 Pulse Oximetry 96 Oxygen Delivery Method Room Air Oxygen Flow Rate 0 Const General: cooperative and lethargic Nutritional Appearance: overweight Orientation: alert, awake and oriented x3 Resp Auscultation: clear to auscultation bilaterally Cardio Rate: regular rate Rhythm: regular rhythm GI Inspection: obesity Palpation: soft and tender (mildly) Skin General: dry skin and warm Wounds: wounds noted Other: Dressings are C+D Neuro General: patient alert and patient awake Extrem General: normal to inspection and no pedal edema Psych Speech and Movement: speech and movement normal Affect: normal affect Attitude: cooperative Thought Process: normal Thought Content: normal Judgment: judgment good Objective Labs Result Diagrams: 07/30/21 04:57 07/30/21 04:57 Labs: Laboratory Results - last 24 hr 07/30/21 07/30/21 04:57 04:57 WBC 11.2 H RBC 3.60 L Hgb 10.3 L Hct 31.4 L MCV 87.4 MCH 28.5 MCHC 32.7 RDW 13.7 Plt Count 279 Neut % (Auto) 78.4 H Lymph % (Auto) 11.8 L [place] % (Auto) 7.4 Eos % (Auto) 2.1 Baso % (Auto) 0.3 Neut # (Auto) 8800 H Lymph # (Auto) 1300 [place] # (Auto) 800 Eos # (Auto) 200 Baso # (Auto) 0 Sodium 138 Potassium 3.8 Chloride 103 Carbon Dioxide 33 H BUN 19 H Creatinine 0.89 Estimated GFR > 60.0 BUN/Creatinine Ratio 21.3 Glucose 106 Calcium 8.7 Total Bilirubin 2.0 H AST 95 H ALT 116 H Alkaline Phosphatase 112 Total Protein 6.5 Albumin 3.4 L Globulin 3.1 Albumin/Globulin Ratio 1.1 PFSH Medical History GERD (gastroesophageal reflux disease) History of ectopic Obesity Paraganglioma Surgical History History of laparotomy Hx of tonsillectomy Family History Sister Cancer Father Cancer Mother Gallstone Social History marital status: household members: spouse Smoking Status: Never smoker alcohol intake: never Assessment & Plan Assessment & Plan narrative: POD#3 Lap converted to Open Cholecystectomy NO flatus yet Feels crummy cont. liqs, OOB awaiting good bowel function Time Spent With Patient Time with patient: less than 30 minutes Critical Care time: I spent a total of [] minutes of critical care time on this patient's care today; this time is exclusive of procedural time.
--- NOTE | 2021-07-30 21:19 | PC.NURSE ---
Patient ambulating in the hallway with and staff. Binder is on, abdominal incision dressings are dry and intact. Prune juice given and encouraged to drink fluids. Bowel tones active and passing gas. HR tachy. Denies anything for pain other than scheduled tylenol. Call light within reach.
[2021-07-31] VITALS (9 sets, daily range): BP systolic 107–139; BP diastolic 65–73; PULSE 100–116; RESP 16–18; TEMP 36.4–36.9; O2SAT 92–96
[2021-07-31] MEDS: ACETAMINOPHEN 325 MG TABLET 650 MG PO ×3 (00:07→12:26)
[2021-07-31] MEDS: PANTOPRAZOLE DR 40 MG TABLET PO (05:47)
[2021-07-31] MEDS: ENOXAPARIN 40 MG/0.4 ML SYRINGE SUBCUT (08:33)
[2021-07-31] MEDS: ONDANSETRON 4 MG/2 ML INJ IV (08:34)
--- NOTE | 2021-07-31 08:39 | P.PN_ITS ---
Subjective Subjective Date Patient Seen: 07/31/21 Time Patient Seen: 08:39 Interval history: Feels much better today + BM Exam Vital Signs (past 8 hours): - 07/31/21 05:38 07/31/21 05:50 07/31/21 08:00 Temperature 98.0 F 97.8 F Pulse Rate 100 H 102 H Respiratory Rate 16 18 Blood Pressure 107/71 119/65 Pulse Oximetry 95 92 Oxygen Delivery Method Room Air Oxygen Flow Rate 0 Const General: cooperative and comfortable Orientation: alert and awake Eyes General: appearance normal, both eyes and all related structures Neck Neck: normal visual inspection Resp Effort & Inspection: normal respiratory effort Auscultation: clear to auscultation bilaterally Cardio Rate: regular rate Rhythm: regular rhythm GI Palpation: soft Skin General: dry skin and warm Other: Dressings are C+D Psych Attitude: cooperative Thought Process: normal Thought Content: normal Judgment: judgment good Objective Labs Result Diagrams: 07/30/21 04:57 07/30/21 04:57 [facility] Medical History GERD (gastroesophageal reflux disease) History of ectopic Obesity Paraganglioma Surgical History History of laparotomy Hx of tonsillectomy Family History Sister Cancer Father Cancer Mother Gallstone Social History marital status: household members: spouse Smoking Status: Never smoker alcohol intake: never Assessment & Plan Assessment & Plan narrative: POD# 4 Lap converted to Open Cholecystectomy Doing better Bowel activity returning OOB, Adv Diet Prob Home tomorrow Time Spent With Patient Time with patient: less than 30 minutes Critical Care time: I spent a total of [] minutes of critical care time on this patient's care today; this time is exclusive of procedural time.
[2021-07-31] MEDS: SODIUM CHLORIDE 0.9% FLUSH 10 ML IV (09:00)
--- NOTE | 2021-07-31 10:58 | PT.IPTN ---
Current Diagnoses Calculus of bile duct without cholangitis or cholecystitis without obstruction (07/27/21) Surgery Performed Operation Date: 07/27/21 09:45 Actual Procedures p Laparoscopic Cholecystectomy- converted to open cholecystectomy - Sanjeev Carl MD Physical Therapy Treatment Note M2 PT-IP Current Condition Start: 07/28/21 16:07 Freq: NEEDED Status: Active Protocol: Document 07/28/21 14:22 AB (Rec: 07/28/21 16:17 AB [id number]) Physical Therapy Current Condition Current Condition Evaluation Date 07/28/21 Treatment Diagnosis s/p lap bin; difficulty in walking Onset Date 07/27/21 Precautions Abdominal Surgery Precautions Log Roll,Lifting Restrictions, Gait Belt above Incisional Area M3 PT-IP Subjective Start: 07/28/21 16:07 Freq: NEEDED Status: Active Protocol: Document 07/31/21 10:35 SP (Rec: 07/31/21 13:05 SP [id number]) Subjective Physical Therapy Visit Type Type Treatment Note Visit Start Time 10:35 Visit Stop Time 10:58 Total Visit Minutes 23 Notes arrived during gait in hallway, provided CG- low min A during gait using SPC. Number of [employer] TECHNICIAN Visits 3 Physical Therapy Visit Comments Patient Comments Pt agreeable to working with therapy during 2nd attempt, nausea when initially arrived about 0916. Patient Goals Return home with assist. Therapy Pain Assessment Pain When Pain Assessed During Mobility Pain Present Pain Present Pain Reported Location abdomen Intensity 3 Scale Used during mobility. Description Dull,With Movement Pain Behaviors Facial Grimacing Pain Management Techniques Distraction,Re-positioning, Timing of Activity with Medications M4 PT-IP Mobility and Gait Start: 07/28/21 16:07 Freq: NEEDED Status: Active Protocol: Document 07/31/21 10:35 SP (Rec: 07/31/21 13:05 SP [id number]) PT-Bed Mobility Assessment Rolling Type of Rolling Log Rolling Level of Assist Standby Assistance Supine to Sit Supine to Sit Contact Guard Assistance,1 Person Assistance,Head of Bed Elevated Scooting Scooting to Edge of Bed Standby Assistance PT-Transfer Assessment Sit to and From Stand Sit to and from Stand Standby Assistance,Use of Upper Extremities Equipment Transfer Assistive Device Gait Belt,Front Wheeled Walker Orthotic/Prosthetic Devices or Brace: No Transfers Transfer Destination Chair Transfer Technique pt ambulated using FWW, SPC Transfer Ability Level of Assist Standby Assistance,Use of Upper Extremities Comments Mobility Comments Pt reports of nausea when initially arrived. Pt agreeable to working when returned at 1035. Completed LR L and L SL>sit anc scoot to EOB CGA with good bracing abdomen with pillow and UE. Pt donned abdominal binder in sitting EOB. Sit>stand SBA using 1 UE from bed and FWW. Pt denied lightheadedness this tx. Pt able to walk further into hallway using FWW SBA with light contact pressure on FWW 80 ft. arrived took over CG- Min A given during to pt for balance and coordination assessment use of SPC 80 ft back to room, min cuing for 2 pt patterning in RUE with LLE. Pt states hasn't use SPC before, improved patterning as distance progressed. Gait no AD in room short distance 30ft chair<> door CGA slighth wt shift deviation x2 but self recovery . Pt and reported using FWW at this time felt more comfortable. Pt maintained HR 99- 105 bpm throughout tx, noted little SOB but improved with pursed lip slow breath education. Pt was seated in chair with call light and all needs in reach before left and in room. Gait Assessment Gait Gait Assistance Required: Standby Assistance Distance (Feet) 80 Able to Maintain Weight Bearing Status Yes During Gait Assistive Devices Assistive Device Gait Belt,Front Wheeled Walker Orthotic/Prosthetic Devices or Brace: No Gait Deviations General Gait Pattern Antalgic Factors Limiting Gait Function Factors Limiting Gait Function Decreased Activity Tolerance, Decreased Strength,Limited Range of Motion,Pain, Respiratory Distress Comments Gait Comments See mobility comments using FWW, SPC, no AD. PT-Balance Assessment Sitting Balance and Reactions Static Sitting Balance Ability Normal Dynamic Sitting Balance Ability Good Standing Balance and Reactions Static Standing Balance Ability Good Dynamic Standing Balance Ability Good Device Used FWW, Fair using SPC Balance Tests Single Limb Standing 3 sec each LE Romberg 30 sec trunk shift sway self recovery CGA NBOS EC Tandem Standing unsteady EO, CG- Min A M5 PT-IP Objective Assessments Start: 07/28/21 16:07 Freq: NEEDED Status: Active Protocol: Document 07/28/21 14:22 AB (Rec: 07/28/21 16:17 AB [id number]) Orientation Orientation/Cognition Level of Alertness Alert Orientation Name,Place,Situation Language Function Ability No Deficits Noted Safety Awareness Decreased Safety Awareness Memory Description No Deficits Noted Gross Range of Motion Lower Extremity ROM Assessment Within Functional Limits Strength Lower Extremity Strength Assessment Left Impaired Hip 3+/5 Knee 4-/5 Coordination Assessment Gross Coordination Gross Coordination WNL Sensation Assessment Sensation Gross Sensation WNL Muscle Tone Muscle Tone WNL Yes M6 PT-IP Treatment Start: 07/28/21 16:07 Freq: NEEDED Status: Active Protocol: Document 07/31/21 10:35 SP (Rec: 07/31/21 13:05 SP [id number]) Physical Therapy Treatment Education Education Provided Precautions,Safety Other Treatments Other Treatment Performed Good carryover abdominal bracing during bed mobility and able self don abdominal binder this tx. M7 PT-IP Assessment and Plan Start: 07/28/21 16:07 Freq: NEEDED Status: Active Protocol: Document 07/31/21 10:35 SP (Rec: 07/31/21 13:05 SP [id number]) PT Summary Assessment and Plan Potential Rehabilitation Potential Good Status of Condition at Evaluation Evolving Summary Impairments Pain,ROM,Strength,Balance, Coordination,Sensation,Tone, Cognition,Bed Mobility, Transfers,Gait,Activity Tolerance Progress Towards Goals Progressing Toward Goals,Slow Progress due to Pain,Slow Progress due to Activity Tolerance Assessment Summary Pt requiring CGA during bed mob, SBA during standing mobility using FWW 80 ft, Min- CGA use of SPC 80 ft, CGA with no AD short distances in room . Pt's HR 99- 105 bpm, + little SOB during gait more with SPC than FWW. [employer] TECHNICIAN recommending ok return home with to assist her when medically cleared using FWW safest at this time. was able to acquire FWW. Goals Bed Mobility Goal Independent Transfer Goal Independent,Front Wheeled Walker Gait Goal Independent,Front Wheel Walker Gait Distance 200 Other Goals improve transfers and ambulation without AD 200 ft SBA up/down 3 steps without rails SBA Days to Meet Goals 10 Frequency of Treatment Frequency Of Treatment Once a Day Treatment Plan Physical Therapy Treatment Plan Bed Mobility Training,Transfer Training,Gait Training, Therapeutic Exercise,Balance Retraining,Post Op Education, Discharge Planning,Hot or Cold Pack,Neuromuscular Re-ed, Coordination Retraining,Manual Therapy Other Recommendations and Next Treatment Distance gait LRAD, standing Focus balance assessment. Precautions Abdominal Surgery Precautions Log Roll,Lifting Restrictions, Gait Belt above Incisional Area Other Precautions Good recall and demonstration of precautions Recommendations To Nursing Amount of Assist Needed Standby Assistance Discharge Recommendations PT Discharge Recommendations Home with Assistance Equipment Needed for Home Before FWW - acquired for home Discharge use. Transportation Needs at Discharge Private Vehicle
--- NOTE | 2021-07-31 15:19 | CM.DPC ---
DCP Cont: Per Surgeon, pt has minimal pain and ambulating and beginning to get bowel function back and will advance her diet with likely plan of d/c home Monday (tomorrow) if medically stable. SW observed pt ambulating halls multiple times with SO and no concerns noted at this time. Plan: SW to follow for likely d/c home tomorrow if medically stable and pt tolerates advancing diet. YULISSA Mejia
--- NOTE | 2021-07-31 16:02 | PM.DS.1 ---
History of Present Illness History of Present Illness Date Patient Seen: 07/31/21 Time Patient Seen: 16:03 Chief complaint: LAP [place] Narrative: Admitted 07/27 for elective lap [place] which was converted to open cholecystectomy Discharge Providers Provider Date of admission: 07/27/21 08:40 Discharge Date: 07/31/21 Primary care physician: Rose Hutchins Consults: 07/27/21 14:39 Consult to Respiratory Therapy Evaluate & Treat Comment: Physician Instructions: Evaluate and treat 07/28/21 10:25 Consult to Physical Therapy Evaluate & Treat Comment: Physician Instructions: Evaluate and Treat Discharge provider: Jose Elias Jasmine MD Summary Hospital Course Discharge Diagnosis: Biliary Colic Hospital Course: She underwent surgery 07/27. Post operative course was uncomplicated. Passed gas and had a BM this morning. Now feels well enough to go home Status at Discharge Cognitive/behavioral status at discharge: oriented Functional status at discharge: independent ambulation Overall status at discharge: patient is back to baseline Time Spent with Patient Time spent: Less than 30 minutes Exam Vital Signs (past 8 hours): - 07/31/21 09:00 07/31/21 12:00 07/31/21 13:00 Temperature 98 F Pulse Rate 101 H Respiratory Rate 18 Blood Pressure 139/69 Pulse Oximetry 95 96 96 Oxygen Delivery Method Room Air Oxygen Flow Rate 0 Const General: cooperative Nutritional Appearance: overweight Orientation: alert, awake and oriented x3 HENMT Head: normal to inspection Eyes General: appearance normal, both eyes and all related structures Neck Neck: normal visual inspection and full ROM Resp Effort & Inspection: normal respiratory effort and able to speak in complete sentences GI Palpation: soft Skin General: dry skin and warm Other: Wounds are C+D with steristrips in place Neuro General: patient alert and patient awake Speech: speech normal Extrem General: normal to inspection Psych Speech and Movement: speech and movement normal Affect: normal affect Attitude: cooperative Thought Process: normal Thought Content: normal Judgment: judgment good Objective Labs Result Diagrams: 07/30/21 04:57 07/30/21 04:57 [facility] Medical History GERD (gastroesophageal reflux disease) History of ectopic Obesity Paraganglioma Surgical History History of laparotomy Hx of tonsillectomy Family History Sister Cancer Father Cancer Mother Gallstone Social History marital status: household members: spouse Smoking Status: Never smoker alcohol intake: never Discharge Assessment & Plan Assessment and Plan Assessment: S/P Open cholecystectomy Plan of Treatment: Doing well. D/C Home F/U with Dr. Carl Discharge Plan Discharge Plan Patient Disposition: Home Discharge orders & Medications Prescriptions: Continued omeprazole 20 mg capsule,delayed release(DR/EC) 40 mg PO DAILY RF: 0 omega-3 fatty acids-fish oil [Fish Oil] 360-1,200 mg capsule 1 cap PO DAILY RF: 0 aspirin 81 mg tablet,delayed release (DR/EC) 81 mg PO DAILY RF: 0 multivitamin [Multiple Vitamins] Tablet 1 tab PO DAILY RF: 0 calcium carbonate [Calcium 500] 500 mg calcium (1,250 mg) tablet 500 mg PO DAILY RF: 0 Probiotic 15 billion cell capsule, sprinkle 1 cap PO DAILY RF: 0 Follow up/Referrals: Rose Hutchins [Primary Care Provider] - Sanjeev Carl MD [Physician] - 2 Weeks Diet/Activity/Treatments Diet: Diet as Tolerated Skin/Wound/Dressing Care Report to your healthcare provider any signs of infection, such as:: chills, fever, increased pain, unusual drainage and unusual redness Visit Report/Discharge Packet Stand Alone Forms: Surgery Discharge Discharge Data Primary Care Provider: Rose Hutchins
== END 2021-07-31 16:45 | disposition home or self-care (01) | DRG 416 ==
LOC: OR 08:40 → AC 16:34
PROVIDERS: Admitting Provider Surgery; PCP Family Medicine; Referring Provider Surgery; Visit Provider Surgery
PROC: 0FT44ZZ Resection of Gallbladder, Percutaneous Endoscopic Approach (ICD-10-PCS; CPT 47562; principal; 2021-07-27 09:45)
DX: K80.70 Calculus of gallbladder and bile duct without cholecystitis without obstruction (principal); K66.0 Peritoneal adhesions (postprocedural) (postinfection); R33.9 Retention of urine, unspecified; K21.9 Gastro-esophageal reflux disease without esophagitis; E66.9 Obesity, unspecified; Z68.35 Body mass index [BMI] 35.0-35.9, adult
CPT/HCPCS: 36415; 47600; 80053; 82962; 85025; 94760; 97116; 97162; 97530; C9290; J0690; J1100; J1170; J1650; J1885; J2405; J2704; J3010

== ENCOUNTER → 2021-08-10 13:35 | Outpatient (CLI) | payer OTHER, SELFPAY ==
[2021-07-27 15:47] VITALS: BMI 34.9
[2021-08-10 14:36] LABS: Alanine Aminotransferase 28 IU/L (<35); Albumin 4.1 g/dL (3.5-5.0); Albumin Globulin Ratio 1.5 (1.0-2.8); Alkaline Phosphatase 119 U/L (38-126); Aspartate Aminotransferase 33 IU/L (14-36); BUN Creatinine Ratio 16.9 (6-22); Bilirubin Total 0.6 mg/dL (0.2-1.3); Blood Urea Nitrogen 13 mg/dL (7-17); Calcium 9.3 mg/dL (8.4-10.2); Carbon Dioxide 30 mmol/L (22-32); Chloride 102 mmol/L (98-107); Estimated Glomerular Filt Rate > 60.0 mL/min (>60); Globulin 2.8 g/dL (1.7-4.1); Glucose 101 mg/dL (80-110); HEMOLYSIS < 15 (0-50); Sodium 140 mmol/L (137-145); Total Protein 6.9 g/dL (6.3-8.2)
[2021-08-10 14:39] LABS: Add Manual Diff / Slide Review NO; Basophils Absolute Auto 100 /uL (0-100); Basophils Percent Auto 1.1 % (0-2); Eosinophils Absolute Auto 500 /uL (0-450); Eosinophils Percent Auto 5.8 % (2-4); Hematocrit 37.1 % (36-46); Hemoglobin 11.9 g/dL (12.0-16.0); Lymphocytes Absolute Auto 2700 /uL (1100-4500); Lymphocytes Percent Auto 33.3 % (25-40); Mean Corpuscular HGB Conc 32.1 % (30-36); Mean Corpuscular Volume 86.9 fL (80-100); Monocytes Absolute Auto 700 /uL (0-900); Monocytes Percent Auto 9.1 % (3-14); Neutrophils Absolute Auto 4100 /uL (1500-7000); Neutrophils Percent Auto 50.7 % (50-75); Platelet Count 481 X10^3/uL (150-400); Red Blood Cell Count 4.27 X10^6/uL (4.0-5.2); Red Cell Distribution Width 13.7 % (11.6-14.8); White Blood Cell Count 8.1 X10^3/uL (4.5-11.0)
== END ==
PROVIDERS: PCP Family Medicine; Referring Provider Surgery; Visit Provider Surgery
DX: R61 Generalized hyperhidrosis (principal)
CPT/HCPCS: 36415; 80053; 85025

== ENCOUNTER → 2021-09-16 17:36 | Outpatient (CLI) | payer OTHER, SELFPAY ==
[2021-07-27 15:47] VITALS: BMI 34.9
--- NOTE | 2021-09-16 | DI.MG.S_ITS ---
BILATERAL DIGITAL SCREENING MAMMOGRAM 3D/2D WITH CAD: 09/16/2021 CLINICAL: Routine screening. Comparison is made to exams dated: 07/29/2020 mammogram - [facility], 01/24/2019 mammogram, and 01/09/2018 mammogram - [facility]. There are scattered fibroglandular elements in both breasts. Current study was also evaluated with a Computer Aided Detection (CAD) system. No significant masses, calcifications, or other findings are seen in either breast. There has been no significant interval change. IMPRESSION: NEGATIVE There is no mammographic evidence of malignancy. A 1 year screening mammogram is recommended. This exam was interpreted at Station ID: [id number]. NOTE: For mammograms, a report in lay terms will be sent to the patient. Approximately 15% of breast malignancies will not be visualized mammographically. In the management of a palpable breast mass, a negative mammogram must not discourage biopsy of a clinically suspicious lesion. Electronically Signed By: Gloria higgins/carrol:09/17/2021 11:50:54 letter sent: Normal Exam ACR BI-RADS Category 1: Negative [id number]
== END ==
PROVIDERS: PCP Family Medicine; Referring Provider Family Medicine; Visit Provider Family Medicine
DX: Z12.31 Encounter for screening mammogram for malignant neoplasm of breast (principal)
CPT/HCPCS: 77063; 77067

== ENCOUNTER 2022-03-16 17:31 | Observation (INO) | payer OTHER, SELFPAY ==
[2021-07-27 15:47] VITALS: BMI 34.9
[2022-03-16] VITALS (13 sets, daily range): BP systolic 121–153; BP diastolic 61–74; PULSE 68–85; RESP 17–24; TEMP 36.4–36.7; O2SAT 95–100; BMI 33.4
--- NOTE | 2022-03-16 17:50 | DI.CT.S_ITS ---
PROCEDURE: CT HEAD/BRAIN WO CON INDICATIONS: near syncope, episode of difficulty getting words out TECHNIQUE: Noncontrast 4.5 mm thick angled axial sections acquired from the foramen magnum to the vertex, with coronal and sagittal reformats. For radiation dose reduction, the following was used: automated exposure control, adjustment of mA and/or kV according to patient size. COMPARISON: None. FINDINGS: Image quality: Excellent. CSF spaces: Basal cisterns are patent. No extra-axial fluid collections. The ventricles are symmetric in size and shape. Brain: No intracranial bleeds or masses. There is cerebral volume loss for age, with resultant ventricular and sulcal prominence. There are periventricular and deep white matter chronic small vessel ischemic changes. There is intracranial internal carotid artery atherosclerosis. Skull and face: Calvarium and visualized facial bones appear intact, without suspicious lesions. Sinuses: Visualized sinuses and mastoids are clear. IMPRESSION: No significant noncontrast head CT abnormality is seen for age. If there is strong clinical suspicion for an acute stroke, please consider a brain MRI for further evaluation, as it is more sensitive (assuming that there is no contraindication to MRI). Dictated by: Pa Pate M.D. on 03/16/2022 at 17:12 Approved by: Pa Pate M.D. on 03/16/2022 at 17:13
--- NOTE | 2022-03-16 18:04 | ED_ITS ---
HPI - Neuro Symptoms/Deficit General Chief Complaint: Neuro Symptoms/Deficit Stated Complaint: Almost passed out, not feeling right Time Seen by Provider: 03/16/22 18:04 Source: patient and family Mode of arrival: Ambulatory Limitations: no limitations History of Present Illness HPI Narrative: This is a 61 year old female who had a sudden onset at 4:30 p.m of a sensation of dizziness which she describes as lightheadedness or almost passing out. She and her were looking at the computer she felt flushed, like she might pass out but did not pass out that her heart rate was elevated and the energy drain from her body. Both she and her noted her speech was slurred for about 5 minutes. Patient denies any expressive aphasia. She has had a light headache since the episode, she denies any vision changes, no facial droop appreciated, she felt generally weak but no localized or lateralizing weakness, no numbness or tingling. Patient denies chest pain or shortness of breath, no nausea or vomiting, no issues with bowel movements or urination she ambulated to the car after being evaluated by EMS deferring transport. She takes omeprazole daily, vitamins and today has had 234 mg of aspirin she normally takes a baby aspirin daily. She had a cholecystectomy in the past, no known drug allergies. No tobacco, alcohol or illicit. Her primary care is through [facility] [place]. She has not had similar events in the past. On Anticoagulants: No Related Data Home Medications Medication Instructions Recorded Confirmed aspirin 81 mg tablet,delayed 81 mg PO DAILY 11/11/19 03/16/22 release calcium carbonate 500 mg calcium 500 mg PO DAILY 11/11/19 03/16/22 (1,250 mg) tablet (Calcium 500) lactobacillus combo no.11 15 1 cap PO DAILY 11/11/19 03/16/22 billion cell sprinkle capsule (Probiotic) multivitamin (Multiple Vitamins) 1 tab PO DAILY 11/11/19 03/16/22 omega-3 fatty acids-fish oil 360 1 cap PO DAILY 11/11/19 03/16/22 mg-1,200 mg capsule (Fish Oil) omeprazole 20 mg capsule,delayed 40 mg PO DAILY 11/11/19 03/16/22 release Allergies Allergy/AdvReac Type Severity Reaction Status Date / Time No Known Drug Allergies Allergy Verified 08/10/21 13:02 Review of Systems Review of Systems ROS Unobtainable: All systems reviewed & are unremarkable except as noted in HPI and below Hematologic/Lymphatic On Anticoagulants: No Patient History Medical History GERD (gastroesophageal reflux disease) History of ectopic Obesity Paraganglioma Surgical History History of laparotomy Hx of tonsillectomy Family History Sister Cancer Father Cancer Mother Gallstone Social History marital status: household members: spouse Smoking Status: Never smoker alcohol intake: never Smoking Status: Never smoker Substance Use Type: does not use Exam Narrative Exam Narrative: GEN: well nourished, well appearing female, alert and oriented x 3, patient appears to be in mild distress. HEENT: Atraumatic, pupils are equal round reactive to light, extraocular movements are intact, nares are clear. Throat is clear without any exudates, erythema, tonsillar enlargement or uvular deviation, no facial droop HEART: Regular rate and rhythm without murmur, clicks, rubs. LUNGS:Lungs clear to auscultation, no wheezes, rales, crackles, chest moves symmetrically ABD:bowel sounds normal, soft, non-tender, no guarding, rebound, rigidity, no masses noted, no hepatosplenomegaly :No CVA tenderness MSCL: Non-tender, no muscle atrophy, muscles strength 5/5 upper and lower extremities, full range of motion, normal gait NEURO:CN 2-12 intact, sensation normal, finger nose finger test normal, heel guillory test normal, romberg normal, no dysarthria. Initial Vital Signs Initial Vital Signs: Vital Signs Respiratory Rate 18 03/16/22 17:36 Blood Pressure 153/73 H 03/16/22 17:36 Scores NIH Stroke Scale Level of Conciousness: Alert, keenly responsive Ask month/age: Answers both questions correctly. Open/close eyes, close hand: Performs both tasks correctly Best gaze horizontal: Normal Visual renner: No visual loss Facial palsy: Normal symetrical movement Left arm drift: No drift for full 10 sec Right arm drift: No drift for full 10 sec Left leg drift: No drift for full 5 sec Right leg drift: No drift for full 5 sec Limb ataxia: Absent Sensory on face/arms/legs: Normal, no sensory loss Best language: No aphasia, normal Dysarthria: Normal Extinction or inattention: No abnormality Total NIH Stroke scale score: 0 Course Orders Ordered: Discontinued Medications Acetaminophen (Acetaminophen 325 Mg Tablet) 650 mg PO Q6HR PRN PRN Reason: pain, fever Aspirin (Aspirin 81 Mg Chew Tab) 81 mg PO NOW ONE Stop: 03/16/22 18:45 Last Admin: 03/16/22 19:11 Dose: 81 mg Documented by: WANDA Aspirin (Aspirin Ec 81 Mg Tablet) 81 mg PO DAILY [facility] Last Admin: 03/17/22 09:08 Dose: 81 mg Documented by: PRAFUL Atorvastatin Calcium (Atorvastatin 20 Mg Tablet) 80 mg PO BEDTIME [facility] Last Admin: 03/16/22 21:51 Dose: Not Given Documented by: NICK Enoxaparin Sodium (Enoxaparin 40 Mg/0.4 Ml Syringe) 40 mg SUBCUT DAILY [facility] Last Admin: 03/17/22 09:08 Dose: 40 mg Documented by: PRAFUL Sodium Chloride (Normal Saline 0.9%) 1,000 mls @ 150 mls/hr IV CONT [facility] Last Infusion: 03/16/22 21:41 Dose: 0 mls/hr Documented by: LUIS ENRIQUE Admin: 03/16/22 19:12 Dose: 150 mls/hr Documented by: WANDA Non-Formulary Medication (Omeprazole) 40 mg PO DAILY [facility] Ondansetron HCl (Ondansetron 4 Mg/2 Ml Inj) 4 mg IV Q8HR PRN PRN Reason: Nausea And Vomiting Pantoprazole Sodium (Pantoprazole Dr 40 Mg Tablet) 40 mg PO 0600 [facility] Last Admin: 03/17/22 05:08 Dose: 40 mg Documented by: NICK Reevaluation(s) Reevaluation #1: Patient updated on findings today. Concern for TIA and recommendation for observation and workup. Patient and family agreeable. Consultations Consultation #1: Dr. Flynn, accepts for observation for workup for TIA. Vital Signs Vital signs: Vital Signs - 8 hr 03/16/22 17:36 03/16/22 18:19 03/16/22 18:21 Temperature Pulse Rate 79 85 Respiratory Rate 18 Blood Pressure 153/73 H 140/69 Pulse Oximetry 95 100 03/16/22 18:30 03/16/22 19:00 03/16/22 19:06 Temperature 98.1 F Pulse Rate 84 80 Respiratory Rate 22 Blood Pressure 126/62 Pulse Oximetry 100 100 03/16/22 19:07 03/16/22 19:30 Temperature Pulse Rate 81 84 Respiratory Rate 18 Blood Pressure 132/65 Pulse Oximetry 100 100 MDM - Neuro Symptoms/Deficit Lab Data Result diagrams: 03/17/22 05:30 03/17/22 05:30 Labs: Lab Results 03/16/22 03/16/22 03/16/22 Range/Units 17:45 17:45 17:45 WBC 10.3 (4.5-11.0) X10^3/uL RBC 4.29 (4.0-5.2) X10^6/uL Hgb 12.0 (12.0-16.0) g/dL Hct 35.7 L (36-46) % MCV 83.3 (80-100) fL MCH 27.9 (26-34) PG MCHC 33.5 (30-36) % RDW 13.4 (11.6-14.8) % Plt Count 369 (150-400) X10^3/uL Neut % (Auto) 67.2 (50-75) % Lymph % (Auto) 21.9 L (25-40) % Saline % (Auto) 7.4 (3-14) % Eos % (Auto) 2.7 (2-4) % Baso % (Auto) 0.8 (0-2) % Neut # (Auto) 6900 (4882-2707) /uL Lymph # (Auto) 2300 (8571-1764) /uL Saline # (Auto) 800 (0-900) /uL Eos # (Auto) 300 (0-450) /uL Baso # (Auto) 100 (0-100) /uL Sodium 141 (137-145) mmol/L Potassium 3.8 (3.4-5.1) mmol/L Chloride 103 (98-107) mmol/L Carbon Dioxide 30 (22-32) mmol/L BUN 18 H (7-17) mg/dL Creatinine 0.99 (0.52-1.04) mg/dL Estimated GFR > 60 (>60) mL/min BUN/Creatinine Ratio 18.2 (6-22) Glucose 105 (80-110) mg/dL Calcium 9.4 (8.4-10.2) mg/dL Total Creatine Kinase 70 (30-135) U/L CK-MB (CK-2) TNP CK-MB (CK-2) Rel Index TNP Troponin I < 0.012 (0.01-0.034) ng/mL NT-Pro-B Natriuret Pep 243 H (<125) pg/mL SARS-CoV-2 (PCR) (Negative) 03/16/22 Range/Units 19:40 WBC (4.5-11.0) X10^3/uL RBC (4.0-5.2) X10^6/uL Hgb (12.0-16.0) g/dL Hct (36-46) % MCV (80-100) fL MCH (26-34) PG MCHC (30-36) % RDW (11.6-14.8) % Plt Count (150-400) X10^3/uL Neut % (Auto) (50-75) % Lymph % (Auto) (25-40) % Saline % (Auto) (3-14) % Eos % (Auto) (2-4) % Baso % (Auto) (0-2) % Neut # (Auto) (9134-8977) /uL Lymph # (Auto) (4410-4937) /uL Saline # (Auto) (0-900) /uL Eos # (Auto) (0-450) /uL Baso # (Auto) (0-100) /uL Sodium (137-145) mmol/L Potassium (3.4-5.1) mmol/L Chloride (98-107) mmol/L Carbon Dioxide (22-32) mmol/L BUN (7-17) mg/dL Creatinine (0.52-1.04) mg/dL Estimated GFR (>60) mL/min BUN/Creatinine Ratio (6-22) Glucose (80-110) mg/dL Calcium (8.4-10.2) mg/dL Total Creatine Kinase (30-135) U/L CK-MB (CK-2) CK-MB (CK-2) Rel Index Troponin I (0.01-0.034) ng/mL NT-Pro-B Natriuret Pep (<125) pg/mL SARS-CoV-2 (PCR) Negative (Negative) Point of Care Testing Glucose POC 89 Urine Dip Bedside Urine Glucose Negative Bedside Urine Bilirubin - Negative Bedside Urine Ketone - Negative Urine Specific [place] 1.010 Bedside Urine Occult Blood - Negative Bedside Urine pH 6.0 Bedside Urine Protein - Negative Bedside Urine Urobilinogen - Negative Bedside Urine Nitrite - Negative Bedside Urine Leukocytes - Negative Esterase Imaging Data CT scan - head: Radiologist's Impression: [address] [address] [address] Scan Report Signed Patient: Светлана Damon MR#: [id number] : 1960 Acct:[id number] Age/Sex: 61 / F Date of Service: 03/16/22 Loc: ED Accession Number: [id number] ?? Procedure: CT head/brain wo con Ordering Provider: Sepideh Deluca D.O. PROCEDURE:? CT HEAD/BRAIN WO CON ? INDICATIONS:? near syncope, episode of difficulty getting words out ? TECHNIQUE:? Noncontrast 4.5 mm thick angled axial sections acquired from the foramen magnum to the vertex, with coronal and sagittal reformats.? For radiation dose reduction, the following was used:? automated exposure control, adjustment of mA and/or kV according to patient size.? ? COMPARISON:? None. ? FINDINGS:? Image quality:? Excellent.? ? CSF spaces:? Basal cisterns are patent.? No extra-axial fluid collections.? The ventricles are symmetric in size and shape.? ? Brain:? No intracranial bleeds or masses.? There is cerebral volume loss for age, with resultant ventricular and sulcal prominence.? There are periventricular and deep white matter chronic small vessel ischemic changes.? There is intracranial internal carotid artery atherosclerosis.? ? Skull and face:? Calvarium and visualized facial bones appear intact, without suspicious lesions.? ? Sinuses:? Visualized sinuses and mastoids are clear.? ? ? IMPRESSION:? No significant noncontrast head CT abnormality is seen for age.? ? If there is strong clinical suspicion for an acute stroke, please consider a brain MRI for further evaluation, as it is more sensitive (assuming that there is no contraindication to MRI). ? ? Dictated by: Pa Pate M.D. on 03/16/2022 at 17:12 ? ? Approved by: Pa Pate M.D. on 03/16/2022 at 17:13 CTA - brain/neck: Radiologist's Impression: Светлана Damon??61??F??1960 ? Allergy/Adv: No Known Drug Allergies Close Head/Neck CTA (Signed) Erasmo Lane - 03/16/[address] (Signed) Pa Pate - 03/16/22 Mammogram Screening (Signed) Gloria Toth - 09/16/21 Mammogram Screening (Signed) Vishnu Rincon - 07/29/20 Shoulder MRI (Signed) Eliazar Montes [place] - 12/05/19 [place] [address] CT Scan Report Signed Patient: Светлана Damon MR#: [id number] : 1960 Acct:[id number] Age/Sex: 61 / F Date of Service: 03/16/22 Loc: ED Accession Number: [id number] ?? Procedure: CT angio head and neck Ordering Provider: Pema Richardson D.O. PROCEDURE:? CT ANGIO HEAD AND NECK ? INDICATIONS:? dysarthria, near syncope, weakness, resolved. ? TECHNIQUE:? After the administration of intravenous contrast, 1 mm thick sections acquired from the aortic arch through the [place] of [place].? Post-contrast 4.5 mm thick sections then re-acquired from the foramen magnum to the vertex.? 3-dimensional wsetemg-uvccnhtlx-fswfxdnfyy (MIP) and/or volume rendering reformats were acquired of the central intracranial vasculature and neck separately. For radiation dose reduction, the following was used:? automated exposure control, adjustment of mA and/or kV according to patient size.? ? COMPARISON:? [facility], CT, CT HEAD/BRAIN WO CON, 03/16/2022, 17:58. ? FINDINGS:? Image quality:? Excellent.? ? BRAIN:? CSF spaces:? Ventricles are normal in size and shape.? Basal cisterns are patent.? No extra-axial fluid collections.? ? Brain:? No midline shift.? No intracranial bleeds or masses.? Garrett-white matter interface appears intact.? ? Skull and face:? Calvarium and facial bones appear intact, without suspicious lesions.? Orbits appear normal.? ? Sinuses:? Sinuses and mastoids are clear.? ? HEAD CT ANGIOGRAPHY:? Anterior circulation:? Intracranial internal carotid arteries are normal in size and flow.? The flow within the paired anterior cerebral arteries is normal and symmetric.? The flow within the middle cerebral arteries is normal and symmetric.? The anterior communicating artery is seen.? No aneurysms are seen.? ? Posterior circulation:? Visualized portions of the vertebral arteries demonstrate normal caliber, and join to form a normal appearing basilar artery.? Flow within the posterior cerebral arteries is normal and symmetric.? No aneurysms are seen.? ? NECK CT ANGIOGRAPHY:? Carotid system:? The great vessels demonstrate a conventional anatomy as they arise from the aortic arch.? The origins of the common carotid arteries appear patent.? The common carotid arteries demonstrate normal caliber and courses.? The bifurcation regions are both widely patent.? The internal carotid arteries demonstrate normal calibers and courses.? ? Posterior circulation:? The origins of the vertebral arteries both appear widely patent.? The more superior extracranial portions of both vertebral arteries also demonstrate normal courses and calibers.? They join to form a normal appearing basilar artery.? ? Soft tissues:? Visualized neck soft tissues demonstrate no suspicious abn ormalities.? ? Bones:? No suspicious bony lesions.? Visualized cervical spine appears normally aligned.? IMPRESSION:? ? 1. No evidence acute stroke, hemorrhage, or mass. ? 2. Unremarkable CTA head.? No stenosis, aneurysm, occlusion, or focal filling defect. ? 3. Widely patent carotids. ? Any quantitative measurements of stenosis were performed using NASCET criteria.? ? ? Dictated by: Erasmo Lane M.D. on 03/16/2022 at 19:48 ? ? Approved by: Erasmo Lane M.D. on 03/16/2022 at 19:51?? ECG Data Attestation: I personally reviewed and interpreted this ECG as follows: Interpretation: Possible ectopic atrial rhythm, rate 81 CO 130 QRS of 74 and QTC of 415. Patient appears to have a sinus rhythm. Possible extra ectopic beats. No ST elevation or depression. MDM Narrative Medical decision making narrative: This is a 61-year-old female who was flushed felt like she is going to pass out but had approximately 5 minutes of dysarthria which is by patient and . Patient's symptoms have resolved her NIH is 0 at this time and is not a candidate for tPA secondary to this. CT and CT angiography do not show any major changes. Patient was given aspirin, 81 mg in addition to the 243 mg she had earlier today. Patient's labs and imaging do not show other clear causes and I suspect TIA. Spoke with hospitalist who accepts for observation and workup. Discharge Plan Departure Patient Disposition: Admitted as Observation Clinical Impression: TIA (transient ischemic attack) Admit Date/Time: 03/16/22 20:25 Admit Provider: James Flynn
[2022-03-16 18:43] LABS: Add Manual Diff / Slide Review NO; Basophils Absolute Auto 100 /uL (0-100); Basophils Percent Auto 0.8 % (0-2); Eosinophils Absolute Auto 300 /uL (0-450); Eosinophils Percent Auto 2.7 % (2-4); Hematocrit 35.7 % (36-46); Lymphocytes Absolute Auto 2300 /uL (1100-4500); Lymphocytes Percent Auto 21.9 % (25-40); Mean Corpuscular HGB Conc 33.5 % (30-36); Mean Corpuscular Hemoglobin 27.9 PG (26-34); Mean Corpuscular Volume 83.3 fL (80-100); Monocytes Absolute Auto 800 /uL (0-900); Monocytes Percent Auto 7.4 % (3-14); Neutrophils Absolute Auto 6900 /uL (1500-7000); Neutrophils Percent Auto 67.2 % (50-75); Platelet Count 369 X10^3/uL (150-400); Red Blood Cell Count 4.29 X10^6/uL (4.0-5.2); Red Cell Distribution Width 13.4 % (11.6-14.8); White Blood Cell Count 10.3 X10^3/uL (4.5-11.0)
--- NOTE | 2022-03-16 18:45 | DI.CT.S_ITS ---
PROCEDURE: CT ANGIO HEAD AND NECK INDICATIONS: dysarthria, near syncope, weakness, resolved. TECHNIQUE: After the administration of intravenous contrast, 1 mm thick sections acquired from the aortic arch through the [place] of [place]. Post-contrast 4.5 mm thick sections then re-acquired from the foramen magnum to the vertex. 3-dimensional yojnneq-nxpopyagf-vzyblvszzx (MIP) and/or volume rendering reformats were acquired of the central intracranial vasculature and neck separately. For radiation dose reduction, the following was used: automated exposure control, adjustment of mA and/or kV according to patient size. COMPARISON: [facility], CT, CT HEAD/BRAIN WO CON, 03/16/2022, 17:58. FINDINGS: Image quality: Excellent. BRAIN: CSF spaces: Ventricles are normal in size and shape. Basal cisterns are patent. No extra-axial fluid collections. Brain: No midline shift. No intracranial bleeds or masses. Garrett-white matter interface appears intact. Skull and face: Calvarium and facial bones appear intact, without suspicious lesions. Orbits appear normal. Sinuses: Sinuses and mastoids are clear. HEAD CT ANGIOGRAPHY: Anterior circulation: Intracranial internal carotid arteries are normal in size and flow. The flow within the paired anterior cerebral arteries is normal and symmetric. The flow within the middle cerebral arteries is normal and symmetric. The anterior communicating artery is seen. No aneurysms are seen. Posterior circulation: Visualized portions of the vertebral arteries demonstrate normal caliber, and join to form a normal appearing basilar artery. Flow within the posterior cerebral arteries is normal and symmetric. No aneurysms are seen. NECK CT ANGIOGRAPHY: Carotid system: The great vessels demonstrate a conventional anatomy as they arise from the aortic arch. The origins of the common carotid arteries appear patent. The common carotid arteries demonstrate normal caliber and courses. The bifurcation regions are both widely patent. The internal carotid arteries demonstrate normal calibers and courses. Posterior circulation: The origins of the vertebral arteries both appear widely patent. The more superior extracranial portions of both vertebral arteries also demonstrate normal courses and calibers. They join to form a normal appearing basilar artery. Soft tissues: Visualized neck soft tissues demonstrate no suspicious abnormalities. Bones: No suspicious bony lesions. Visualized cervical spine appears normally aligned. IMPRESSION: 1. No evidence acute stroke, hemorrhage, or mass. 2. Unremarkable CTA head. No stenosis, aneurysm, occlusion, or focal filling defect. 3. Widely patent carotids. Any quantitative measurements of stenosis were performed using NASCET criteria. Dictated by: Erasmo Lane M.D. on 03/16/2022 at 19:48 Approved by: Erasmo Lane M.D. on 03/16/2022 at 19:51
[2022-03-16 19:02] LABS: Creatine Kinase 70 U/L (30-135)
[2022-03-16 19:04] LABS: BUN Creatinine Ratio 18.2 (6-22); Blood Urea Nitrogen 18 mg/dL (7-17); Calcium 9.4 mg/dL (8.4-10.2); Carbon Dioxide 30 mmol/L (22-32); Chloride 103 mmol/L (98-107); Estimated Glomerular Filt Rate > 60 mL/min (>60); Glucose 105 mg/dL (80-110); HEMOLYSIS < 15 (0-50); Potassium 3.8 mmol/L (3.4-5.1); Sodium 141 mmol/L (137-145)
[2022-03-16] MEDS: ASPIRIN 81 MG CHEW TAB PO (19:11)
[2022-03-16] MEDS: SODIUM CHLORIDE 0.9% 1,000 ML 150 ML IV (19:12)
[2022-03-16 19:18] LABS: NT-proBNP (BNP-Adult 18+) 243 pg/mL (<125); Troponin I < 0.012 ng/mL (0.01-0.034)
[2022-03-16 20:06] LABS: COVID19 -Nasal RAPID Negative (Negative)
--- NOTE | 2022-03-16 21:00 | DI.MRI.S_ITS ---
PROCEDURE: MR HEAD/BRAIN WO CON INDICATIONS: tia? TECHNIQUE: Noncontrast axial T1 spin echo, axial T2 fast spin echo, sagittal and axial FLAIR, coronal T2 fast spin echo, axial gradient echo, axial diffusion and ADC through the brain. COMPARISON: [facility], CT, CT ANGIO HEAD AND NECK, 03/16/2022, 19:14. FINDINGS: Image quality: Excellent. CSF Spaces: Basal cisterns are patent. No extra-axial fluid collections. Ventricles are normal in size and shape. Brain: No intracranial hemorrhage. There is a rounded, dural based low T2 signal intensity extra-axial focus within the left posterior parafalcine region adjacent to the left parietal lobe measuring 10 mm, suggestive of a meningioma. Garrett/white matter interface is normal. Brainstem appears normal. Diffusion-weighted images demonstrate no acute ischemic insult. No chronic ischemic insults. Normal intravascular flow voids are present. Skull and face: Calvarium has normal marrow signal. Orbits appear normal. Sinuses: Sinuses and mastoids are clear. IMPRESSION: 1. No acute intracranial abnormality. No recent infarct. 2. Left posterior parafalcine meningioma. Dictated by: Tony Mejia M.D. on 03/17/2022 at 8:17 Approved by: Tony Mejia M.D. on 03/17/2022 at 8:30
--- NOTE | 2022-03-16 21:14 | DI.ECHO.S_ITS ---
[place] +---------+ [facility] +---------+ : : [address] : : : : [place] : : : : [id number] : : : : Phone: [phone] Echocardiogram Report + + :Name: DANTE DOWNEY Study Date: 03/17/2022 Height: 68 in : :[facility] ReadingLocation: Weight: 220 lb : : Gender: Female BSA: 2.1 m2 : :: 1960 Age: 61 yrs BP: 121/74 mmHg: :Reason For Study: TIA : :Ordering Physician: : :ADWOA WHITE Performed By: Micheal Paredes : :Referring: ADWOA WHITE : + + Interpretation Summary The left ventricle is normal in size and wall thickness. Left ventricular systolic function is normal. The ejection fraction is estimated to be 60-65%. There are no focal wall motion abnormalities. Diastolic parameters suggest probable normal left ventricular diastolic function and normal filling pressures. The right ventricle is normal in size and function. The right ventricular systolic pressure is estimated to be at least 24 mmHg based on an estimated right atrial pressure of 3 mm Hg. Both atria are normal in size. The interatrial septum grossly appears intact with no obvious evidence for an atrial septal defect. Injection of contrast documented no interatrial shunt. There is no significant valvular heart disease. The aortic root is normal size. Procedure: A two-dimensional transthoracic echocardiogram with color flow and Doppler was performed. The study quality was technically adequate. There is no prior echocardiogram noted for this patient. A saline contrast injection was performed to assess for cardiac shunting. Left Ventricle: The left ventricle is normal in size and wall thickness. Left ventricular systolic function is normal. The ejection fraction is estimated to be 60-65%. There are no focal wall motion abnormalities. Diastolic parameters suggest probable normal left ventricular diastolic function and normal filling pressures. Right Ventricle: The right ventricle is normal in size and function. Atria: Both atria are normal in size. The interatrial septum grossly appears intact with no obvious evidence for an atrial septal defect. Injection of contrast documented no interatrial shunt. Mitral Valve: The mitral valve is normal in structure and function. There is trace mitral regurgitation. Aortic Valve: The aortic valve is normal in structure and function. No aortic regurgitation is present. Tricuspid Valve: The tricuspid valve is normal in structure and function. There is mild tricuspid regurgitation. The right ventricular systolic pressure is estimated to be at least 24 mmHg based on an estimated right atrial pressure of 3 mm Hg. Pulmonic Valve: The pulmonic valve is normal in structure and function. There is a trace or physiologic amount of pulmonic regurgitation. There is no significant valvular heart disease. Great Vessels: The aortic root is normal size. The dimensions of the ascending aorta are normal. The IVC is of normal diameter and collapses greater than 50% with a sniff. This suggests a low right atrial pressure of 3 mm Hg. Pericardium/ Pleura There is no pericardial effusion. There is no pleural effusion. MMode/2D Measurements & Calculations LVIDd: 5.0 cm LVOT diam: 2.1 cm LVIDs: 3.2 cm Ao root diam: 3.0 cm FS: 36.7 % asc Aorta Diam: 3.2 cm IVSd: 0.77 cm LVPWd: 0.79 cm LV mendez. diameter/BSA (cm/m^2): 2.3 LV sys. diameter/BSA (cm/m^2): 1.5 LA A2 area: 17.9 cm2 RA long axis: 4.0 cm LA A4 area: 16.8 cm2 RA area: 10.5 cm2 LA length (vol): 4.5 cm RA vol: 23.5 ml LA vol: 56.4 ml RA : 11.0 ml/m2 LA vol index: 26.5 ml/m2 TAPSE: 2.6 cm Doppler Measurements & Calculations Ao V2 max: 147.5 cm/sec LVOT Max [place]: 110.5 cm/sec Ao V2 mean: 103.9 cm/sec LV V1 max P.9 mmHg Ao max P.7 mmHg LV V1 VTI: 21.2 cm Ao mean P.8 mmHg THUAN(I,D): 2.7 cm2 Ao V2 VTI: 27.9 cm THUAN(V,D): 2.6 cm2 sev ratio: 0.76 THUAN indexed to BSA (cm^2/m^2): 1.2 MV E max [place]: 79.6 cm/sec TR max [place]: 228.4 cm/sec MV A max [place]: 72.2 cm/sec TR max P.9 mmHg MV E/A: 1.1 Med Peak E' [place]: 9.2 cm/sec E/E' med: 8.6 Lat Peak E' [place]: 10.3 cm/sec E/E' lat: 7.8 E/e' average: 8.2 MV dec time: 0.19 sec SV(LVOT): 73.9 ml Reading Physician:12:32 PM
--- NOTE | 2022-03-16 23:51 | PM.HP.1 ---
History of Present Illness History of Present Illness Date Patient Seen: 03/16/22 Time Patient Seen: 23:00 Chief complaint: Almost passed out, not feeling right Narrative: Ms. Damon is a 61W with PMH GERD who presents with an episode of dizziness. She states she felt lightheaded, like she would pass out. She felt she had tunnel vision. She felt her heart racing. She had slurred speech for about 5 minutes. She felt generalized, but not lateralizing weakness. Her symptoms resolved on their own. She has noted that a couple times a year she will get a sensation of a racing heart that then self resolves. She has no cardiac disease, or history of cardiac workup. She had eaten a normal amount, no nausea, vomiting, diarrhea. No fevers/chills. She has decided on her own to take a baby aspirin. In the ED workup was done, vitals notable for elevated blood pressure. Labs notable for WBC 10.3, hgb 12, plts 369. Creatinine 0.99. Trop negative. UA negative. CT head and CTA head/neck negative for any acute process. She was given aspirin and admitted for further treatment. Family history: Mother, brother with afib Patient History Medical History GERD (gastroesophageal reflux disease) History of ectopic Obesity Paraganglioma Surgical History History of laparotomy Hx of tonsillectomy Family & Social History Family History Sister Cancer Father Cancer Mother Gallstone Social History: household members spouse Prior Living Arrangements House Safety & Behavioral: Feels Safe in Current Yes Environment Been Physically Hurt or No Threatened By a Person Tobacco & Substance use: Smoking Status Never smoker alcohol intake never Substance Use Type does not use Meds Home Medications and Allergies Home Medications Medication Instructions Recorded Confirmed Type aspirin 81 mg tablet,delayed 81 mg PO DAILY 11/11/19 03/16/22 History release calcium carbonate 500 mg calcium 500 mg PO DAILY 11/11/19 03/16/22 History (1,250 mg) tablet (Calcium 500) lactobacillus combo no.11 15 1 cap PO DAILY 11/11/19 03/16/22 History billion cell sprinkle capsule (Probiotic) multivitamin (Multiple Vitamins) 1 tab PO DAILY 11/11/19 03/16/22 History omega-3 fatty acids-fish oil 360 1 cap PO DAILY 11/11/19 03/16/22 History mg-1,200 mg capsule (Fish Oil) omeprazole 20 mg capsule,delayed 40 mg PO DAILY 11/11/19 03/16/22 History release Allergies Allergy/AdvReac Type Severity Reaction Status Date / Time No Known Drug Allergies Allergy Verified 08/10/21 13:02 Review of Systems Review of Systems Narrative: 14 systems reviewed and negative aside from what is noted in HPI Exam Vital Signs (past 8 hours): - 03/16/22 17:36 03/16/22 18:19 03/16/22 18:21 Temperature Pulse Rate 79 85 Respiratory Rate 18 Blood Pressure 153/73 H 140/69 Pulse Oximetry 95 100 03/16/22 18:30 03/16/22 19:00 03/16/22 19:06 Temperature 98.1 F Pulse Rate 84 80 Respiratory Rate 22 Blood Pressure 126/62 Pulse Oximetry 100 100 03/16/22 19:07 03/16/22 19:30 03/16/22 20:00 Temperature Pulse Rate 81 84 79 Respiratory Rate 18 24 Blood Pressure 132/65 Pulse Oximetry 100 100 99 03/16/22 20:03 03/16/22 20:30 03/16/22 21:00 Temperature Pulse Rate 81 80 83 Respiratory Rate 23 17 19 Blood Pressure 136/63 128/61 144/63 H Pulse Oximetry 99 100 99 03/16/22 22:08 Temperature 97.5 F L Pulse Rate 68 Respiratory Rate 18 Blood Pressure 121/74 Pulse Oximetry 100 Oxygen Delivery Method Room Air Narrative Exam Narrative: GEN: no acute distress HEENT: moist mucous membranes, PERRL NECK: trachea midline, no JVD CV: regular rate and rhythm, no murmurs PULM: clear bilaterally, no wheezes, rhonchi, rales ABD: soft, nontender, nondistended, no organomegaly EXT: warm and well perfused with no edema NEURO: awake, alert, no focal deficits, sensation intact, 5/5 upper and lower extremity strength Objective Labs Result Diagrams: 03/16/22 17:45 03/16/22 17:45 Labs: Laboratory Results - last 24 hr 03/16/22 03/16/22 03/16/22 17:45 17:45 17:45 WBC 10.3 RBC 4.29 Hgb 12.0 Hct 35.7 L MCV 83.3 MCH 27.9 MCHC 33.5 RDW 13.4 Plt Count 369 Neut % (Auto) 67.2 Lymph % (Auto) 21.9 L [place] % (Auto) 7.4 Eos % (Auto) 2.7 Baso % (Auto) 0.8 Neut # (Auto) 6900 Lymph # (Auto) 2300 [place] # (Auto) 800 Eos # (Auto) 300 Baso # (Auto) 100 Sodium 141 Potassium 3.8 Chloride 103 Carbon Dioxide 30 BUN 18 H Creatinine 0.99 Estimated GFR > 60 BUN/Creatinine Ratio 18.2 Glucose 105 Calcium 9.4 Total Creatine Kinase 70 CK-MB (CK-2) TNP CK-MB (CK-2) Rel Index TNP Troponin I < 0.012 NT-Pro-B Natriuret Pep 243 H SARS-CoV-2 (PCR) 03/16/22 19:40 WBC RBC Hgb Hct MCV MCH MCHC RDW Plt Count Neut % (Auto) Lymph % (Auto) [place] % (Auto) Eos % (Auto) Baso % (Auto) Neut # (Auto) Lymph # (Auto) [place] # (Auto) Eos # (Auto) Baso # (Auto) Sodium Potassium Chloride Carbon Dioxide BUN Creatinine Estimated GFR BUN/Creatinine Ratio Glucose Calcium Total Creatine Kinase CK-MB (CK-2) CK-MB (CK-2) Rel Index Troponin I NT-Pro-B Natriuret Pep SARS-CoV-2 (PCR) Negative Assessment & Plan Assessment & Plan narrative: Ms. Damon is a 61W who presents with transient episode of dizziness, weakness, palpitations, slurred speech. 1. Transient dizzines, slurred speech, palpitations -symptoms now resolved -patient worked up as possible CVA in ED -initial NIH 0, CT head and CTA head/neck with no acute process -etiology sounds more like arrhythmia vs vasovagal -for now continue on aspirin -check lipids and a1c -consider dc on statin pending results -keep on telemetry, EKG showed sinus rhythm -recommend outpatient holter monitor -MRI and ECHO ordered -NIH q6 -PT/OT speech ordered, but may be able to dc if patient is asymptomatic 2. GERD -continue PPI CODE: Full Proxy: Tam Damon, I have utilized all available resources to reconcile the patient's home medications Time Spent With Patient Critical Care time: I spent a total of [] minutes of critical care time on this patient's care today; this time is exclusive of procedural time. Quality VTE Deep Vein Thrombosis/Pulmonary Embolism Present on Admission: No
[2022-03-17] MEDS: PANTOPRAZOLE DR 40 MG TABLET PO (05:08)
[2022-03-17 06:00] LABS: Add Manual Diff / Slide Review NO; Basophils Absolute Auto 0 /uL (0-100); Basophils Percent Auto 0.5 % (0-2); Eosinophils Absolute Auto 200 /uL (0-450); Eosinophils Percent Auto 3.1 % (2-4); Hemoglobin 11.3 g/dL (12.0-16.0); Lymphocytes Absolute Auto 2200 /uL (1100-4500); Mean Corpuscular HGB Conc 33.3 % (30-36); Mean Corpuscular Hemoglobin 27.5 PG (26-34); Mean Corpuscular Volume 82.8 fL (80-100); Monocytes Absolute Auto 600 /uL (0-900); Monocytes Percent Auto 8.6 % (3-14); Neutrophils Absolute Auto 4300 /uL (1500-7000); Neutrophils Percent Auto 57.8 % (50-75); Platelet Count 333 X10^3/uL (150-400); Red Blood Cell Count 4.11 X10^6/uL (4.0-5.2); White Blood Cell Count 7.4 X10^3/uL (4.5-11.0)
[2022-03-17 06:15] LABS: BUN Creatinine Ratio 18.8 (6-22); Blood Urea Nitrogen 16 mg/dL (7-17); Calcium 8.7 mg/dL (8.4-10.2); Carbon Dioxide 27 mmol/L (22-32); Chloride 108 mmol/L (98-107); Cholesterol 181 mg/dL (140-199); Estimated Glomerular Filt Rate > 60 mL/min (>60); Glucose 104 mg/dL (80-110); HDL Cholesterol 36 mg/dL (40-60); HEMOLYSIS < 15 (0-50); LDL Cholesterol Calculated 129 mg/dL (<100); Sodium 141 mmol/L (137-145); Triglycerides 79 mg/dL (35-150)
[2022-03-17 07:03] LABS: Hemoglobin A1C% w Est Avg Glu 5.5 % (4.0-6.0)
[2022-03-17 09:00] VITALS: BP 127/77; PULSE 77; RESP 16; TEMP 36.6; O2SAT 97
[2022-03-17] MEDS: ASPIRIN EC 81 MG TABLET PO (09:08)
[2022-03-17] MEDS: ENOXAPARIN 40 MG/0.4 ML SYRINGE SUBCUT (09:08)
[2022-03-17 09:29] VITALS: O2SAT 100
--- NOTE | 2022-03-17 10:08 | ST.IPSCREEN ---
Patient was seated upright in bed when SUPERVISOR FILTRATION arrived. She reported no difficulty with swallowing, speech, or cognition. Speech was 100% intelligible and vocal quality was WNL. Completed oral mechanism exam. Pt presented with strength and ROM of tongue, lips, and jaw WNL. Structures were symmetrical at rest and in motion. Hyolaryngeal elevation and excursion WNL on dry swallow and swallow with thin liquids through straw cup. No overt signs or symptoms of aspiration with thin liquids through straw cup. Speech therapy is not recommended at this time as pt is WNL.
--- NOTE | 2022-03-17 10:51 | OT.IP.TRT ---
Occupational Therapy Treatment Note M3 OT- IP Subjective and Pain Start: 03/17/22 13:08 Freq: Status: Active Protocol: Document 03/17/22 10:51 [facility] (Rec: 03/17/22 13:27 [facility] [id number]) OT- Subjective Occupational Therapy Visit Type Type Treatment Note Visit Start Time 10:51 Visit Stop Time 11:00 Total Visit Minutes 9 Occupational Therapy Visit Comments Patient Comments Pt states feels back to normal /baseline but agreed to do Blevins Making Part B. Patient/Caregiver Goals To go home. OT Pain Assessment Pain When Pain Assessed At Rest Pain Present Pain Present Denied Pain M6 OT- IP Functional Cognition Start: 03/17/22 13:08 Freq: Status: Active Protocol: Document 03/17/22 10:51 [facility] (Rec: 03/17/22 13:27 [facility] [id number]) Cognitive Factors Limiting Selfcare Function Cognitive Ability Level of Alertness Alert Patient Orientation Name,Age,Birthday,Month,Date, Year,Day of Week,Place, Situation Attention Span Ability Capable of Focused Attention, Capable of Sustained Attention Ability to Follow Commands Able to Follow Multi-Step Commands Cognitive Comments Cognitive Assessment Comments Pt scored 45 seconds on Blevins Making Part B which implies perfect score for task switching, speed of processing , mental flexibility, executive functioning, and visual attention. M9 OT- IP Assessment and Plan Start: 03/17/22 13:08 Freq: Status: Active Protocol: Document 03/17/22 10:51 [facility] (Rec: 03/17/22 13:27 [facility] [id number]) OT Summary Assessment and Plan Pt states back to baseline and able to do all needs for herself again. No further OT needed. Frequency of Treatment Frequency Of Treatment Discharge Treatment Plan OT Treatment Plan Discharge Planning Discharge Recommendations OT Discharge Recommendations Home Transportation Needs at Discharge Private Vehicle
--- NOTE | 2022-03-17 10:51 | PM.DS.1 ---
History of Present Illness History of Present Illness Date Patient Seen: 03/17/22 Time Patient Seen: 10:51 Chief complaint: Almost passed out, not feeling right Narrative: Per Dr. Flynn, Ms. Damon is a 61W with PMH GERD who presents with an episode of dizziness. She states she felt lightheaded, like she would pass out. She felt she had tunnel vision. She felt her heart racing. She had slurred speech for about 5 minutes. She felt generalized, but not lateralizing weakness. Her symptoms resolved on their own. She has noted that a couple times a year she will get a sensation of a racing heart that then self resolves. She has no cardiac disease, or history of cardiac workup. She had eaten a normal amount, no nausea, vomiting, diarrhea. No fevers/chills. She has decided on her own to take a baby aspirin. In the ED workup was done, vitals notable for elevated blood pressure. Labs notable for WBC 10.3, hgb 12, plts 369. Creatinine 0.99. Trop negative. UA negative. CT head and CTA head/neck negative for any acute process. She was given aspirin and admitted for further treatment. Family history: Mother, brother with afib Discharge Providers Provider Date of admission: 03/16/22 20:25 Discharge Date: 03/17/22 Primary care physician: Rose Hutchins Consults: 03/16/22 21:14 Consult to Discharge Planning Routine Comment: Consult to Occupational Therapy Evaluate & Treat Comment: Physician Instructions: Evaluate and treat Consult to Physical Therapy Evaluate & Treat Comment: Physician Instructions: Evaluate and Treat Consult to Speech Therapy Evaluate & Treat Comment: Physician Instructions: Evaluate and treat Discharge provider: Juan Carlos Begum DO Summary Hospital Course Discharge Diagnosis: 1. Transient dizzines, slurred speech, palpitations 2. GERD Hospital Course: This is a 61-year-old female with a past medical history of GERD who presented with a transient episode of dizziness, slurred speech, and palpitations. She was evaluated for a possible TIA with echocardiogram an MRI, both of which were unremarkable. Her symptoms are more consistent with an arrhythmia at this time, or possible stress/anxiety. I do recommended outpatient Holter monitor as no significant events were noted on telemetry over the course of her stay. No medication changes are recommended at the time of discharge. I recommended the patient follow-up with her primary care provider's previously scheduled. Exam Vital Signs (past 8 hours): - 03/17/22 09:00 03/17/22 09:29 Temperature 97.8 F Pulse Rate 77 Respiratory Rate 16 Blood Pressure 127/77 Pulse Oximetry 97 100 Oxygen Delivery Method Room Air Narrative Exam Narrative: GEN: no acute distress HEENT: moist mucous membranes, PERRL NECK: trachea midline, no JVD CV: regular rate and rhythm, no murmurs PULM: clear bilaterally, no wheezes, rhonchi, rales ABD: soft, nontender, nondistended, no organomegaly EXT: warm and well perfused with no edema NEURO: awake, alert, no focal deficits, sensation intact, 5/5 upper and lower extremity strength Objective Labs Result Diagrams: 03/17/22 05:30 03/17/22 05:30 Labs: Laboratory Results - last 24 hr 03/16/22 03/16/22 03/16/22 17:45 17:45 17:45 WBC 10.3 RBC 4.29 Hgb 12.0 Hct 35.7 L MCV 83.3 MCH 27.9 MCHC 33.5 RDW 13.4 Plt Count 369 Neut % (Auto) 67.2 Lymph % (Auto) 21.9 L [place] % (Auto) 7.4 Eos % (Auto) 2.7 Baso % (Auto) 0.8 Neut # (Auto) 6900 Lymph # (Auto) 2300 [place] # (Auto) 800 Eos # (Auto) 300 Baso # (Auto) 100 Sodium 141 Potassium 3.8 Chloride 103 Carbon Dioxide 30 BUN 18 H Creatinine 0.99 Estimated GFR > 60 BUN/Creatinine Ratio 18.2 Glucose 105 Hemoglobin A1c Calcium 9.4 Total Creatine Kinase 70 CK-MB (CK-2) TNP CK-MB (CK-2) Rel Index TNP Troponin I < 0.012 NT-Pro-B Natriuret Pep 243 H Triglycerides Cholesterol LDL Cholesterol, Calc HDL Cholesterol SARS-CoV-2 (PCR) 03/16/22 03/17/22 03/17/22 19:40 05:30 05:30 WBC 7.4 RBC 4.11 Hgb 11.3 L Hct 34.0 L MCV 82.8 MCH 27.5 MCHC 33.3 RDW 14.0 Plt Count 333 Neut % (Auto) 57.8 Lymph % (Auto) 30.0 [place] % (Auto) 8.6 Eos % (Auto) 3.1 Baso % (Auto) 0.5 Neut # (Auto) 4300 Lymph # (Auto) 2200 [place] # (Auto) 600 Eos # (Auto) 200 Baso # (Auto) 0 Sodium 141 Potassium 4.0 Chloride 108 H Carbon Dioxide 27 BUN 16 Creatinine 0.85 Estimated GFR > 60 BUN/Creatinine Ratio 18.8 Glucose 104 Hemoglobin A1c Calcium 8.7 Total Creatine Kinase CK-MB (CK-2) CK-MB (CK-2) Rel Index Troponin I NT-Pro-B Natriuret Pep Triglycerides 79 Cholesterol 181 LDL Cholesterol, Calc 129 H HDL Cholesterol 36 L SARS-CoV-2 (PCR) Negative 03/17/22 05:30 WBC RBC Hgb Hct MCV MCH MCHC RDW Plt Count Neut % (Auto) Lymph % (Auto) [place] % (Auto) Eos % (Auto) Baso % (Auto) Neut # (Auto) Lymph # (Auto) [place] # (Auto) Eos # (Auto) Baso # (Auto) Sodium Potassium Chloride Carbon Dioxide BUN Creatinine Estimated GFR BUN/Creatinine Ratio Glucose Hemoglobin A1c 5.5 Calcium Total Creatine Kinase CK-MB (CK-2) CK-MB (CK-2) Rel Index Troponin I NT-Pro-B Natriuret Pep Triglycerides Cholesterol LDL Cholesterol, Calc HDL Cholesterol SARS-CoV-2 (PCR) COUNT INCLUDES THE [facility] Medical History GERD (gastroesophageal reflux disease) History of ectopic Obesity Paraganglioma Surgical History History of laparotomy Hx of tonsillectomy Family History Sister Cancer Father Cancer Mother Gallstone Social History marital status: household members: spouse Smoking Status: Never smoker alcohol intake: never Discharge Plan Discharge Plan Patient Disposition: Home Provider Discharge Comment: You were admitted to the hospital with symptoms of a possible stroke or arrythmia. [place] more likely to be do to an abnormal heart rhythm at this time, but was not captured while in the hospital. Recommend outpatient holter monitoring to be further determined by primary care provider. No medication changes are recommended at this time. Discharge orders & Medications Prescriptions: Continued omeprazole 20 mg capsule,delayed release(DR/EC) 40 mg PO DAILY 0RF omega-3 fatty acids-fish oil [Fish Oil] 360-1,200 mg capsule 1 cap PO DAILY 0RF aspirin 81 mg tablet,delayed release (DR/EC) 81 mg PO DAILY 0RF multivitamin [Multiple Vitamins] Tablet 1 tab PO DAILY 0RF calcium carbonate [Calcium 500] 500 mg calcium (1,250 mg) tablet 500 mg PO DAILY 0RF Probiotic 15 billion cell capsule, sprinkle 1 cap PO DAILY 0RF Follow up/Referrals: Rose Hutchins [Primary Care Provider] - Diet/Activity/Treatments Diet: Diet as Tolerated Activity: As tolerated Discharge Data Primary Care Provider: Rose Hutchins Attending Provider: James Flynn VTE Deep Vein Thrombosis/Pulmonary Embolism Present on Admission: No
--- NOTE | 2022-03-17 11:30 | PC.NURSE ---
Discharge note: Cleared by SP/PT. Discharge instructions given to patient, discussed importance of F/U with PMD, signs of worsening symptoms and medications. Patient verbalized understanding of discharge instructions, home via private vehicle accompanied by spouse.
--- NOTE | 2022-03-17 12:46 | CM.IDA ---
Initial DCP Assessment Note Pt is a 61 yo female, resident of [place], arrives after an episode of dizziness, tunnel vision, heart racing w/slurred speech. Patient admitted for stroke/TIA r/o and discharged home. Seen and discharged by INCOME TAX CONSULTANT; patient WNL for speech PCP: Rose Hutchins Payer: Kassandra Osorio Reviewed chart, pt discussed in multidisciplinary rounds this morning. Therapy has cleared pt for return and pt has planned for home, DC order initiated this morning. Patient off acute care floor before this TECHNICAL SALES ENGINEER able to complete bedside assessment. No needs from DC planning team . YULISSA Elias
== END 2022-03-17 11:00 | disposition home or self-care (01) ==
LOC: ED 20:24 → AC 20:26
PROVIDERS: Emergency Medicine; Admitting Provider Internal Medicine; Emergency Provider Emergency Medicine; PCP Family Medicine; Referring Provider Emergency Medicine; Visit Provider Internal Medicine
DX: R42 Dizziness and giddiness (principal); R47.81 Slurred speech; R00.2 Palpitations; K21.9 Gastro-esophageal reflux disease without esophagitis; Z20.822 Contact with and (suspected) exposure to COVID-19
CPT/HCPCS: 36415; 70450; 70496; 70498; 70551; 80048; 80061; 81003; 82550; 82962; 83036; 83880; 84484; 85025; 87635; 93005; 93306; 94760; 96372; 97530; 99285; C9803; G0378; J1650; Q9967

== ENCOUNTER → 2022-10-20 13:23 | Outpatient (CLI) | payer OTHER, SELFPAY ==
[2022-03-16 21:39] VITALS: BMI 33.4
--- NOTE | 2022-10-20 13:25 | DI.MG.S_ITS ---
BILATERAL DIGITAL SCREENING MAMMOGRAM 3D/2D WITH CAD: 10/20/2022 CLINICAL: Routine screening. Comparison is made to exams dated: 09/16/2021 mammogram, 07/29/2020 mammogram - [facility], and 01/24/2019 mammogram - [facility]. There are scattered areas of fibroglandular density in both breasts (category b / 25%-50% glandular tissue). Current study was also evaluated with a Computer Aided Detection (CAD) system. No significant masses, calcifications, or other findings are seen in either breast. There has been no significant interval change. IMPRESSION: NEGATIVE There is no mammographic evidence of malignancy. A 1 year screening mammogram is recommended. Based on the Tyrer Cuzick model (a risk assessment model) the patient's lifetime risk is 5.0% and her 10 year risk is 2.1%. According to the ACR, ACS, and NCCN guidelines, an annual breast MRI exam along with mammogram is recommended if the patient's lifetime risk is 20% or greater. This exam was interpreted at Station ID: [id number]. NOTE: For mammograms, a report in lay terms will be sent to the patient. Approximately 15% of breast malignancies will not be visualized mammographically. In the management of a palpable breast mass, a negative mammogram must not discourage biopsy of a clinically suspicious lesion. Electronically Signed By: Vincent su/carrol:10/20/2022 16:44:32 letter sent: Normal Exam ACR BI-RADS Category 1: Negative [id number]
== END ==
PROVIDERS: PCP Family Medicine; Referring Provider Family Medicine; Visit Provider Family Medicine
DX: Z12.31 Encounter for screening mammogram for malignant neoplasm of breast (principal)
CPT/HCPCS: 77063; 77067

== ENCOUNTER → 2025-02-17 09:43 | Outpatient (CLI) | payer OTHER, SELFPAY ==
[2022-03-16 21:39] VITALS: BMI 33.4
--- NOTE | 2025-02-17 09:44 | DI.US.S_ITS ---
PROCEDURE: US VENOUS INSUFFICIENCY LTD INDICATIONS: pain in lower left leg TECHNIQUE: Real time scanning was performed of the lower extremity venous system, with imaging documentation, as well as Color and pulse Doppler interrogation. COMPARISON: None. FINDINGS: LEFT LOWER EXTREMITY: The deep veins are normally compressible, and free of intraluminal thrombus. Color and pulse Doppler demonstrate normal intravascular flow. There is normal augmentation with distal compression maneuver. Reflux within the left common femoral vein. Greater saphenous vein (GSV): Normally 4 mm or less in diameter, with any reflux less than 0.5 seconds. Saphenofemoral junction (SFJ): 6 mm and reflux, duration 2.5 seconds Proximal GSV: 4 mm and reflux, duration 0.4 seconds Mid GSV: 3 mm and reflux, duration 0.8 seconds Distal GSV: 3 mm and reflux, duration 0.6 seconds Calf GSV: 2 mm. Anterior accessory GSV (AAGSV): Not visualized. Small saphenous vein (SSV): 4 mm and reflux, duration 1.4 seconds Thigh extension vein noted with reflux 3.3 seconds. Varicosity within the mid left calf. IMPRESSION: 1. Reflux involving the common femoral vein. 2. Reflux involving the greater saphenous vein. 3. Reflux involving the short saphenous vein. 4. Reflux involving the thigh extension vein. 5. Left thigh varicosity. Dictated by: Guzman Izaguirre Javi Interpreted: Haritha Olivarez MD on 02/17/2025 at 15:11 Transcribed by: HYUN on 02/17/2025 at 15:14 Approved by: Haritha Olivarez M.D. on 02/18/2025 at 7:22
== END ==
LOC: US 09:44
PROVIDERS: PCP Family Medicine
DX: I83.812 Varicose veins of left lower extremity with pain (principal); I87.2 Venous insufficiency (chronic) (peripheral); M79.662 Pain in left lower leg
CPT/HCPCS: 93971

== ENCOUNTER → 2025-10-10 14:27 | Outpatient (CLI) | payer OTHER, MEDICARE, SELFPAY ==
[2022-03-16 21:39] VITALS: BMI 33.4
--- NOTE | 2025-10-10 14:29 | DI.MG.S_ITS ---
MM screening mammo BI: 10/10/2025. BI-RADS: 1 CLINICAL: 65-year old female for bilateral screening mammogram. Tyrer-Cuzick lifetime risk of 4.8%. No personal or first-degree family history of breast cancer. PRIOR EXAMS 11/04/2024, 11/01/2023, 10/24/2023, 10/20/2022. MAMMOGRAPHY TECHNIQUE: 2D and 3D (tomosynthesis) digital mammographic views obtained, with additional images as needed for full coverage. Current study was also evaluated with a Computer Aided Detection (CAD) system. DENSITY B. There are scattered areas of fibroglandular density. MAMMOGRAPHY FINDINGS Bilateral: No suspicious mass, asymmetry, microcalcification, or other abnormality seen. IMPRESSION: * No evidence of malignancy. RECOMMENDATIONS Bilateral * Annual screening mammography. OVERALL ASSESSMENT CATEGORY BI-RADS-1: Negative. The [employer] recommends annual screening mammography beginning at age 40 for women with average risk of breast cancer. ELECTRONICALLY SIGNED: Vishnu Rincon M.D. on 10/12/2025 at 07:49:42 PM PT Interpreting Station ID: [id number]
[2025-10-10 15:56] LABS: Alanine Aminotransferase 20 IU/L (<35); Albumin 4.2 g/dL (3.5-5.0); Albumin Globulin Ratio 1.4 (1.0-2.8); Alkaline Phosphatase 109 U/L (38-126); Blood Urea Nitrogen 20 mg/dL (7-17); Calcium 9.1 mg/dL (8.4-10.2); Carbon Dioxide 29 mmol/L (22-32); Chloride 103 mmol/L (98-107); Cholesterol 147 mg/dL (140-199); Estimated Glomerular Filt Rate > 60 mL/min (>60); Globulin 2.9 g/dL (1.7-4.1); Glucose 108 mg/dL (70-99); HDL Cholesterol 40 mg/dL (40-60); HEMOLYSIS < 15 (0-50); Potassium 4.2 mmol/L (3.4-5.1); Sodium 141 mmol/L (137-145); Total Protein 7.1 g/dL (6.3-8.2); Triglycerides 153 mg/dL (35-150)
== END ==
LOC: MAMMO 14:29
PROVIDERS: PCP Family Medicine; Referring Provider Family Medicine; Visit Provider Family Medicine
DX: Z12.31 Encounter for screening mammogram for malignant neoplasm of breast (principal); E78.2 Mixed hyperlipidemia; E66.9 Obesity, unspecified
CPT/HCPCS: 36415; 77063; 77067; 80053; 80061